=== PATIENT | male | born 1950 | race Caucasian/White ===

== ENCOUNTER 2017-10-06 15:04 | Observation (INO) | payer OTHER ==
[2017-10-06] MEDS ORDERED: NS 500 ML IV ONE (15:07)
[2017-10-06] MEDS ORDERED: ASPIRIN 81 MG CHEWABLE TAB PO ONE (15:07)
--- NOTE | 2017-10-06 15:20 | CPEKG ---
Heart Rate: 100 RR Interval: 600 P-R Interval: 180 QRSD Interval: 116 QT Interval: 392 QTC Interval: 506 P [place]: 0 QRS [place]: 44 T Wave [place]: 261 EKG Severity - ABNORMAL ECG - EKG Impression: SINUS TACHYCARDIA EKG Impression: PAIRED VENTRICULAR PREMATURE COMPLEXES EKG Impression: NONSPECIFIC INTRAVENTRICULAR CONDUCTION DELAY EKG Impression: LOW VOLTAGE IN FRONTAL LEADS EKG Impression: MINIMAL ST DEPRESSION Electronically Signed By: Ariel Pizarro 06-Oct-2017 22:43:00
--- NOTE | 2017-10-06 15:23 | EDPHY ---
H & P Time Seen by Provider: 10/06/17 15:07 HPI/ROS: HPI Chest discomfort, history of coronary artery disease. 67-year-old male by private vehicle with his daughter. This patient has a history of atrial fibrillation. He is currently on Eliquis. He also takes verapamil but he is not sure why he takes this medication. He has an extensive coronary artery disease history including multiple stents placed in the mid 90s and quadruple bypass about 7 years ago. He reports he was up and [place] 2 days ago. [place] felt very short of breath with any kind of exertion and developed left-sided chest pain which she describes as a dull ache with radiation into his left arm. He came back down to the [facility] area and is still experiencing the symptoms. ROS: Constitutional: No fever, no chills. No weakness. Eyes: No discharge. No changes in vision. ENT: No sore throat. No nasal congestion or rhinorrhea. Respiratory: No cough. As above. Cardiac: As above, no palpitations. Gastrointestinal: No abdominal pain, no vomiting, no diarrhea. Genitourinary: No hematuria. No dysuria or increased frequency with urination. Musculoskeletal: No back pain. No neck pain. No myalgias or arthralgias. Skin: No rashes. Neurological: No headache. No focal weakness or altered sensation. Past medical history: As above. Also includes sleep apnea. He uses CPAP at night. His local hazmat driver is out [facility] in [place]. His primary care physician is also in [place]. Is currently taking verapamil on Eliquis. Social history: Nonsmoker. No alcohol. Currently with his daughter. Physical Exam: General Appearance: Alert, mildly anxious. He is a large man. This patient is responding to questions appropriately and in full sentences. He is mildly dyspneic. This patient appears well-hydrated and well-nourished. Eyes: Pupils equal and round no pallor or injection. No lid edema, erythema or injection. Respiratory: There are no retractions, lungs are clear to auscultation anteriorly with good air movement bilaterally. Mild tachypnea. Cardiovascular: Irregular irregular rhythm. No murmur appreciated. Midline sternotomy scar. Gastrointestinal: Obese habitus. Abdomen is soft and nontender, no masses, bowel sounds normal. No focal tenderness at McBurney's point. No Nuno sign. Neurological: Motor sensory function is grossly intact. Cranial nerves are normal. Gait is normal. Skin: Warm and dry, no rashes. Musculoskeletal: Neck is supple and nontender. Extremities are symmetrical. All joints range without pain or impingement. Psychiatric: No agitation. No depression. Database: EKG: EKG time is 3:18 p.m.; EKG shows a atrial fibrillation with multiple PVCs which are partially in a bigeminal pattern. Low voltage in the frontal leads noted. No prior EKG available for comparison. Interpreted by me. Imaging: Chest x-ray AP portable; this is an AP film but probable cardiomegaly, the mediastinum appears wide. No evidence of infiltrate or pneumothorax. Probable mild CHF verses airway disease versus pulmonary venous congestion. No other acute cardiopulmonary disease process noted. Interpreted by me. Echocardiogram: Procedures: Emergency department course: IV was placed. The patient was placed on a rn cardiac rehab. Vital signs reviewed. He was placed on oxygen at 2 L by nasal cannula. He was given 324 mg of chewed aspirin. 3:50 p.m., patient re-evaluated. At this time he does not have any chest pain. While at rest he denies any shortness of breath. An echocardiogram has been ordered and is pending at this time. I discussed the results of his EKG and chest x-ray. Blood work pending. The patient has been informed that he will be admitted to the hospital. He endorses this plan. 4:15 p.m., patient re-evaluated. Resting comfortably at this time. He is currently getting his echocardiogram done. I discussed results of his blood work. He denies any chest pain or shortness of breath at rest currently. Hospitalist paged for admission. 4:30 p.m., spoke with hospitalist, Dr. Villatoro. Case discussed in detail. He accepts this patient for admission to telemetry. He asked that we call the local hazmat driver to have them consult. Cardiology paged. 4:45 p.m., spoke with Dr. Babs Tim, local hazmat driver. Case discussed in detail with her. She will see this patient on consultation. 4:55 p.m., patient re-evaluated. Resting comfortably at this time. Will be taken upstairs shortly. Results of all blood work as well as my discussions with his admitting physician and consulting local hazmat driver discussed with family. All their questions were answered. The patient was admitted in stable condition. D-dimer was noted to be slightly elevated. CT angiogram of chest will be held at this time pending further evaluation by the hospitalist service. Differential Diagnosis: The differential diagnosis on this patient includes but is not limited to congestive heart failure, acute coronary syndrome, myocardial infarction, pulmonary embolism. This represents a partial list of diagnoses considered. These considerations are based on history, physical exam, past history, reassessment and diagnostic testing. Smoking Status: Never smoked Constitutional: Initial Vital Signs Temperature (C) 37.0 C 10/06/17 15:09 Heart Rate 71 10/06/17 15:09 Respiratory Rate 18 10/06/17 15:09 Blood Pressure 130/83 H 10/06/17 15:09 O2 Sat (%) 92 10/06/17 15:09 O2 Delivery Mode Nasal Cannula O2 (L/minute) 2 Allergies/Adverse Reactions: hydromorphone [From Dilaudid] Allergy (Severe, Verified 10/06/17 16:11) "FLATLINES, HEART STOPS" morphine Allergy (Severe, Verified 10/06/17 16:11) "FLATLINES, HEART STOPS" Home Medications: Medication Instructions Recorded Apixaban [Eliquis] 5 mg PO BID 10/06/17 Atorvastatin Calcium 80 mg PO HS 10/06/17 Doxazosin Mesylate [Cardura 4 MG 4 mg PO HS 10/06/17 (*)] Ketoconazole 2% [Nizoral Shampoo 1 radha TP .3X/WK PRN 10/06/17 (*)] Naproxen [Naprosyn] 500 mg PO BID 10/06/17 Nitroglycerin [Nitrostat 0.4 mg 0.4 mg SL Q5M PRN 10/06/17 (*)] Triamterene/Hctz 37.5/25 1 tab PO DAILY 10/06/17 [Maxzide-25 (*)] Verapamil ER [Calan SR/ER 180MG 180 mg PO DAILY 10/06/17 (*)] oxyCODONE IR [Oxycodone Ir (*)] 10 mg PO DAILY PRN 10/06/17 Medical Decision Making - Diagnostics Imaging Results: Imaging Impressions Chest X-Ray 10/06/17 15:08 Impression: Cardiomegaly and pulmonary venous hypertension. No myla failure. - Data Points Laboratory Results: Laboratory Results 10/06/17 15:24 10/06/17 15:24 10/06/17 10/06/17 10/06/17 15:24 15:24 15:24 WBC 8.25 10^3/uL 10^3/uL (3.80-9.50) RBC 5.00 10^6/uL 10^6/uL (4.40-6.38) Hgb 14.9 g/dL g/dL (13.7-17.5) Hct 43.5 % % (40.0-51.0) MCV 87.0 fL fL (81.5-99.8) MCH 29.8 pg pg (27.9-34.1) MCHC 34.3 g/dL g/dL (32.4-36.7) RDW 14.0 % % (11.5-15.2) Plt Count 207 10^3/uL 10^3/uL (150-400) MPV 9.1 fL fL (8.7-11.7) Neut % (Auto) 70.4 % % (39.3-74.2) Lymph % (Auto) 16.1 % % (15.0-45.0) [place] % (Auto) 10.2 % % (4.5-13.0) Eos % (Auto) 1.7 % % (0.6-7.6) Baso % (Auto) 1.2 % % (0.3-1.7) Nucleat RBC Rel Count 0.0 % % (0.0-0.2) Absolute Neuts (auto) 5.81 10^3/uL 10^3/uL (1.70-6.50) Absolute Lymphs (auto) 1.33 10^3/uL 10^3/uL (1.00-3.00) Absolute Monos (auto) 0.84 10^3/uL H 10^3/uL (0.30-0.80) Absolute Eos (auto) 0.14 10^3/uL 10^3/uL (0.03-0.40) Absolute Basos (auto) 0.10 10^3/uL 10^3/uL (0.02-0.10) Absolute Nucleated RBC 0.00 10^3/uL 10^3/uL (0-0.01) Immature Gran % 0.4 % % (0.0-1.1) Immature Gran # 0.03 10^3/uL 10^3/uL (0.00-0.10) PT 18.0 SEC H SEC (12.0-15.0) INR 1.47 H (0.83-1.16) APTT 34.7 SEC SEC (23.0-38.0) D-Dimer 0.55 ug/mLFEU H ug/mLFEU (0.00-0.50) Sodium 138 mEq/L mEq/L (135-145) Potassium 4.3 mEq/L mEq/L (3.5-5.2) Chloride 103 mEq/L mEq/L (97-110) Carbon Dioxide 22 mEq/l mEq/l (22-31) Anion Gap 13 mEq/L mEq/L (8-16) BUN 17 mg/dL mg/dL (7-23) Creatinine 0.8 mg/dL mg/dL (0.7-1.3) Estimated GFR > 60 Glucose 100 mg/dL mg/dL (70-100) Calcium 8.7 mg/dL mg/dL (8.5-10.4) Creatine Kinase 172 IU/L IU/L (0-224) CK-MB (CK-2) Fraction 1.99 ng/mL ng/mL (0.00-3.19) Troponin I < 0.012 ng/mL ng/mL (0.000-0.034) NT-Pro-B Natriuret Pep 680 pg/mL H pg/mL (0-125) TSH 3.000 uIU/mL uIU/mL (0.465-4.680) Medications Given: Discontinued Medications Aspirin (Aspirin) 324 mg PO EDNOW ONE Stop: 10/06/17 15:08 Last Admin: 10/06/17 15:37 Dose: 324 mg Sodium Chloride (Ns) 500 mls @ 1,000 mls/hr IV EDNOW ONE PRN Reason: Protocol Stop: 10/06/17 15:36 Last Admin: 10/06/17 15:39 Dose: 500 mls Departure - Departure Disposition: [facility] Inpatient Acute Clinical Impression: Chest pain, Atrial fibrillation, History of coronary artery disease
[2017-10-06 15:32] LABS: PLATELET COUNT 207 10^3/uL (150-400)
[2017-10-06 15:42] LABS: INR 1.47 (0.83-1.16)
[2017-10-06 15:44] LABS: CREATINE KINASE 172 IU/L (0-224)
[2017-10-06] MEDS ORDERED: ONDANSETRON DISINTEGRATING 4 MG TAB PO PRN (16:39)
[2017-10-06] MEDS ORDERED: ACETAMINOPHEN 325 MG TAB PO PRN (16:39)
[2017-10-06] MEDS ORDERED: ONDANSETRON 4 MG/2 ML VIAL IVP PRN (16:39)
[2017-10-06] MEDS ORDERED: KETOCONAZOLE 2% 120 ML SHAMPOO TP PRN (17:33)
[2017-10-06] MEDS ORDERED: NITROGLYCERIN 0.4 MG BTL SL PRN (17:33)
--- NOTE | 2017-10-06 17:39 | PDGENHP ---
History and Physical - Chief Complaint Acute shortness of breath - History of Present Illness Primary care provider: In [place] Primary health information manager: At [facility] HPI: 67-year-old male presenting with acute shortness of breath characterized as difficulty breathing exacerbated by any physical activity, provoked by even several steps across room, with onset of symptoms 2 days prior when he went to [place], and duration has been persistent thereafter. It has been associated with some left chest and left arm achiness radiating into his lower neck. The symptoms are similar in character to his previous anginal symptoms prior to his cardiac bypass surgery. The patient reports that for the past 2-3 years he has experienced poor exercise tolerance and exertional shortness of breath and he had a nuclear stress dressed test done approximately 2 years ago as well as an echocardiogram which did not warrant any further testing by his health information manager. That being said, over the past 2 days, the patient's shortness of breath has substantially increased and has not returned to baseline despite coming back to [place] from [place]. He otherwise reports that he has been losing some weight over the past 30 days in the context of a low- carbohydrate diet, and he has attempted initiating CPAP approximately 10-12 days ago. He has not recently had any medication changes. History Information - Allergies/Home Medication List Allergies/Adverse Reactions: hydromorphone [From Dilaudid] Allergy (Severe, Verified 10/06/17 16:11) "FLATLINES, HEART STOPS" morphine Allergy (Severe, Verified 10/06/17 16:11) "FLATLINES, HEART STOPS" Home Medications: Apixaban [Eliquis] 5 mg PO BID 10/06/17 [Last Taken 10/06/17 09:00] Atorvastatin Calcium 80 mg PO HS 10/06/17 [Last Taken 10/05/17] Doxazosin Mesylate [Cardura 4 MG (*)] 4 mg PO HS 10/06/17 [Last Taken 10/05/17] Ketoconazole 2% [Nizoral Shampoo (*)] 1 radha TP .3X/WK PRN 10/06/17 [Last Taken Unknown] Naproxen [Naprosyn] 500 mg PO BID 10/06/17 [Last Taken 10/06/17 09:00] Nitroglycerin [Nitrostat 0.4 mg (*)] 0.4 mg SL Q5M PRN 10/06/17 [Last Taken Unknown] Triamterene/Hctz 37.5/25 [Maxzide-25 (*)] 1 tab PO DAILY 10/06/17 [Last Taken ] Verapamil ER [Calan SR/ER 180MG (*)] 180 mg PO DAILY 10/06/17 [Last Taken ] oxyCODONE IR [Oxycodone Ir (*)] 10 mg PO DAILY PRN 10/06/17 [Last Taken Unknown] I have personally reviewed and updated: family history, medical history, social history, surgical history - Past Medical History atrial fibrillation (Permanent on Eliquis), coronary artery disease (With cardiac stents in the and CABG several years ago) Additional medical history: AMINTA on CPAP. Morbid obesity. Chronic lower back pain - Surgical History Additional surgical history: CABG, cardiac stents, back surgery 1 year ago, epidural injection 3 weeks ago - Family History Additional family history: Father of a myocardial infarction at age 38, grandfather had a myocardial infarction at age 50, family history of hyperlipidemia - Social History Smoking Status: Never smoked Alcohol Use: Occasionally (Approximately 1 alcoholic beverage daily) Drug Use: None Additional social history: Independent in his ADLs comma chronically gets short of breath with exercise Review of Systems Review of Systems: ROS: 10pt was reviewed & negative except for what was stated in HPI & below Constitutional: Reports: weight loss Cardiac: Reports: chest pain Respiratory: Reports: shortness of breath Physical Exam Physical Exam: Temp Pulse Resp BP Pulse Ox 37.0 C 84 20 138/72 H 94 10/06/17 15:09 10/06/17 16:42 10/06/17 16:42 10/06/17 16:42 10/06/17 16:42 O2 (L/minute) 2 Constitutional: no apparent distress, not in pain, obese, No uncomfortable Eyes: PERRL, anicteric sclera, EOMI Ears, Nose, Mouth, Throat: moist mucous membranes, hearing normal, ears appear normal, no oral mucosal ulcers Cardiovascular: regular rate and rhythym, no murmur, rub, or gallop, JVD, No edema Respiratory: no respiratory distress, no rales or rhonchi, clear to auscultation Gastrointestinal: normoactive bowel sounds, soft, non-tender abdomen, no palpable masses, No distension Skin: No abrasion, No rash Neurologic: AAOx3, sensation intact bilaterally, No weakness, No facial droop Psychiatric: interacting appropriately, not anxious, not encephalopathic, thought process linear Lab Data & Imaging Review 10/06/17 15:24 10/06/17 15:24 WBC 8.25 10^3/uL (3.80-9.50) 10/06/17 15:24 RBC 5.00 10^6/uL (4.40-6.38) 10/06/17 15:24 Hgb 14.9 g/dL (13.7-17.5) 10/06/17 15: Hct 43.5 % (40.0-51.0) 10/06/17 15: MCV 87.0 fL (81.5-99.8) 10/06/17 15: MCH 29.8 pg (27.9-34.1) 10/06/17 15: MCHC 34.3 g/dL (32.4-36.7) 10/06/17 15:24 RDW 14.0 % (11.5-15.2) 10/06/17 15:24 Plt Count 207 10^3/uL (150-400) 10/06/17 15: MPV 9.1 fL (8.7-11.7) 10/06/17 15:24 Neut % (Auto) 70.4 % (39.3-74.2) 10/06/17: Lymph % (Auto) 16.1 % (15.0-45.0) 10/06/17 15:24 [place] % (Auto) 10.2 % (4.5-13.0) 10/06/17 15:24 Eos % (Auto) 1.7 % (0.6-7.6) 10/06/17 15: Baso % (Auto) 1.2 % (0.3-1.7) 10/06/17 15: Nucleat RBC Rel Count 0.0 % (0.0-0.2) 10/06/17 15: Absolute Neuts (auto) 5.81 10^3/uL (1.70-6.50) 10/06/17 15:24 Absolute Lymphs (auto) 1.33 10^3/uL (1.00-3.00) 10/06/17 15:24 Absolute Monos (auto) 0.84 10^3/uL (0.30-0.80) H 10/06/17 15:24 Absolute Eos (auto) 0.14 10^3/uL (0.03-0.40) 10/06/17 15:24 Absolute Basos (auto) 0.10 10^3/uL (0.02-0.10) 10/06/17 15:24 Absolute Nucleated RBC 0.00 10^3/uL (0-0.01) 10/06/17 15: Immature Gran % 0.4 % (0.0-1.1) 10/06/17 15: Immature Gran # 0.03 10^3/uL (0.00-0.10) 10/06/17 15:24 PT 18.0 SEC (12.0-15.0) H 10/06/17 15:24 INR 1.47 (0.83-1.16) H 10/06/17 15:24 APTT 34.7 SEC (23.0-38.0) 10/06/17 15:24 D-Dimer 0.55 ug/mLFEU (0.00-0.50) H 10/06/17 15:24 Sodium 138 mEq/L (135-145) 10/06/17 15:24 Potassium 4.3 mEq/L (3.5-5.2) 10/06/17 15:24 Chloride 103 mEq/L (97-110) 10/06/17 15:24 Carbon Dioxide 22 mEq/l (22-31) 10/06/17 15:24 Anion Gap 13 mEq/L (8-16) 10/06/17 15:24 BUN 17 mg/dL (7-23) 10/06/17 15:24 Creatinine 0.8 mg/dL (0.7-1.3) 10/06/17 15:24 Estimated GFR > 60 10/06/17 15:24 Glucose 100 mg/dL (70-100) 10/06/17 15:24 Calcium 8.7 mg/dL (8.5-10.4) 10/06/17 15:24 Creatine Kinase 172 IU/L (0-224) 10/06/17 15:24 CK-MB (CK-2) Fraction 1.99 ng/mL (0.00-3.19) 10/06/17 15:24 Troponin I < 0.012 ng/mL (0.000-0.034) 10/06/17 15:24 NT-Pro-B Natriuret Pep 680 pg/mL (0-125) H 10/06/17 15:24 TSH 3.000 uIU/mL (0.465-4.680) 10/06/17 15:24 Visualized and Interpreted Chest x-ray results: Yes Chest X-Ray results: no infiltrate, other (Cardiomegaly, increased central pulmonary vascularity) Visualized and Interpreted EKG results: Yes EKG Interpretation: Positive for: other (Atrial fibrillation with frequent PVCs and bigeminy) Assessment & Plan Assessment: 67-year-old male presents with severe exertional shortness of breath and acute chest pain in the setting of known coronary artery disease, atrial fibrillation comma frequent PVCs Plan: 1. Shortness of breath and chest pain. Acute, new problem this provider, further workup indicated. The symptoms are particularly worrisome for stable angina given that there characterized as consistent with his previous anginal symptoms. They have been particular worsening over the past 2 days and they warrant urgent evaluation. -repeat troponin level in 4 hr to ensure no recent or active ischemia -will discuss with Dr. Babs Tim to determine whether nuclear stress test versus cardiac catheterization is in order -monitor closely for any development of unstable symptoms and administer sublingual nitroglycerin if he does experience symptoms at rest -monitor on telemetry to gauge PVC burden, as this is another possible explanation for his exertional symptoms if he is experiencing poor cardiac output in the setting of frequent PVC conduction -D-dimer rule out pulmonary embolism -get echocardiogram to ensure no recent reduction in ejection fraction -order outside records from [facility] including echocardiogram, baseline EKG, most recent cardiac catheterization and nuclear stress test, and cardiology clinic note 2. Coronary artery disease. Chronic, symptoms are very similar to his previous anginal symptoms, he is continued on his high-dose statin, systemic anticoagulation -repeat lipid panel and hemoglobin A1c 3. Permanent atrial fibrillation. In the setting of morbid obesity obstructive sleep apnea and coronary disease, he is currently on verapamil and systemic anticoagulation -monitor for rapid ventricular response on telemetry 4. Morbid obesity. Increases patient's risk for worsening morbidity and/or mortality, patient currently working on a diet for weight loss 5. Obstructive sleep apnea. Patient currently utilizing CPAP at home, continue to encourage 6. Chronic back pain with continuous opiate dependency. Continue as needed oxycodone Diet. Cardiac, NPO in a.m. Prophylaxis. High risk patient, Lovenox for Code. Full Disposition. Anticipated discharge is 10/07, pending further workup as outlined above. I have discussed patient's presentation with Dr. Ariel Pizarro, he and I both agree that the patient requires urgent evaluation given the similar characterization of his symptoms to his previous anginal equivalent and the patient having high risk for obstructive coronary disease.
--- NOTE | 2017-10-06 17:55 | ECHO ---
[email or web address] [address] [address] Main: [phone] Fax: Transthoracic Echocardiogram Name: JESSY BLACKWOOD MR#: [id number] Study Date: 10/06/2017 Study Time: 04:18 PM Date of : 1950 Age: 67 year(s) Height: 185.4 cm (73 in.) Weight: 129.28 kg (285 lb.) BSA: 2.5 m2 Gender: Male Examination: Echo Indication: Chest Pain, chronic atrial fibrillation Image Quality: Contrast: Requested by: Ariel Martinez BP: 131 mmHg/80 mmHg Heart Rate: Rhythm: Indication: Chest Pain, chronic atrial fibrillation Procedure Staff Pulverizer Feeder: Shasha Levia [facility] Reading Physician: Babs Tim MD Requesting Provider: Philippe Villatoro Conclusions: Moderately dilated left ventricle. The ejection fraction is estimated to be 45-50 %. LV septal motion consistent with conduction abnormality. In some views, the distal septum and apical portion of the septum is hypokinetic. Normal size right ventricle. Normal RV function. The left atrium is moderately dilated. Mild to moderate mitral regurgitation. Mild to moderate tricuspid valve regurgitation. The pulmonary artery pressure is moderately increased. RVSP is 52-57mmHG.. There is no previous echocardiogram for comparison. Measurements: Chambers Valvular Assessment AV/MV Valvular Assessment TV/PV Normal Normal Normal Name Value Range Name Value Range Name Value Range EF Range: 45-50 % Continued Measurements: Findings: Left Ventricle: Moderately dilated left ventricle. The ejection fraction is estimated to be 45-50 %. LV septal motion consistent with conduction abnormality. In some views, the distal septum and apical portion of the septum is hypokinetic. Right Ventricle: Normal size right ventricle. Normal RV function. Patient: JESSY BLACKWOOD Study Date: 10/06/2017 Page 1 of 2 04:18 PM Left Atrium: The left atrium is moderately dilated. Right Atrium: The right atrium is moderately dilated. Mitral Valve: The mitral valve is normal in appearance and function. Mild to moderate mitral regurgitation. Aortic Valve: Mild aortic cusp calcification is noted. Tricuspid Valve: The tricuspid valve is normal in appearance and function. Mild to moderate tricuspid valve regurgitation. The pulmonary artery pressure is moderately increased. RVSP is 52-57mmHG.. Pulmonic Valve: The pulmonic valve is normal in appearance and function. Trivial pulmonic valve regurgitation. Aorta: The aorta is normal. Pericardium: No pericardial effusion. There is pericardial fat. (No Signature Object) Patient: JESSY BLACKWOOD Study Date: 10/06/2017 Page 2 of 2 04:18 PM [id number]
[2017-10-06] MEDS ORDERED: NON-FORMULARY NEW DRUG (Atorvastatin Calcium [Atorvastatin Calcium] 80 MG) PO SCH (21:00)
[2017-10-06] MEDS: ATORVASTATIN CALCIUM 40 MG TAB PO SCH (21:29)
[2017-10-06] MEDS: APIXABAN 5 MG TAB PO SCH (21:29)
[2017-10-06] MEDS: oxyCODONE IR 5 MG TAB PO PRN (21:29)
[2017-10-06] MEDS: DOXAZOSIN MESYLATE 4 MG TAB PO SCH (21:29)
[2017-10-06] MEDS: diphenhydrAMINE 25 MG CAP PO PRN (23:28)
[2017-10-07] MEDS ORDERED: NS 1,000 ML IV ONE (09:04)
[2017-10-07] MEDS ORDERED: DIAZEPAM 5 MG TAB PO ONE ×2 (09:04→09:11)
[2017-10-07] MEDS ORDERED: ASPIRIN EC 325 MG TAB PO ONE ×2 (09:04→09:25)
[2017-10-07] MEDS ORDERED: diphenhydrAMINE 25 MG CAP PO ONE ×2 (09:04→09:25)
[2017-10-07] MEDS ORDERED: FAMOTIDINE 20 MG TAB PO ONE ×2 (09:04→09:11)
[2017-10-07] MEDS ORDERED: TEMAZEPAM 15 MG CAP PO PRN (09:11)
[2017-10-07] MEDS ORDERED: LIDOCAINE 1% 300 MG/30 ML SDV ONE (09:12)
[2017-10-07] MEDS ORDERED: fentaNYL 100 MCG/2 ML INJ ONE (09:12)
[2017-10-07] MEDS ORDERED: IOPAMIDOL (ISOVUE-370) 150 ML BTL IV ONE (09:12)
[2017-10-07] MEDS ORDERED: MIDAZOLAM 2 MG/2 ML VIAL ONE ×3 (09:12→10:25)
--- NOTE | 2017-10-07 09:14 | PDCARPN ---
Cardiology Progress Note Chief Complaint: SOB Assessment/Plan: Assessment: s/p CABG 2010 SOB CP AF Plan: 10/07/17 09:13 Plan for cath this AM NPO d/w patient/family--agreeable with possible risks of procedure Reviewed/Discussed With: multidisciplinary team Time Spent With Patient: 25 min Objective: Vital Signs (8 Hrs) Temp Pulse Resp BP Pulse Ox 10/07/17 07:16 36.8 C 83 17 141/82 H 95 10/07/17 03:47 36.7 C 87 22 H 140/88 H 97 Intake/Output (24 Hrs) 10/06/17 10/07/17 10/08/17 05:59 05:59 05:59 Intake Total 1100 Output Total 2450 Balance -1350 Intake: Oral (ml) 600 IV Infused (ml) 500 Output: Urine (ml) 2450 Toilet 650 Urinal 1800 Other: Weight 133.158 kg Intake Quantity Yes Sufficient Number of Voids 1 Toilet 3 Result Diagrams: 10/06/17 15:24 10/06/17 15:24 Cardiac Labs: Cardiac Lab Results (72 Hrs) 10/06/17 19:59 Troponin I < 0.012 - Physical Exam Constitutional: healthy appearing Eyes: PERRL Ears, Nose, Mouth, Throat: moist mucous membranes Cardiovascular: irregularly irregular Peripheral Pulses: 1+: femoral (R), femoral (L) Respiratory: clear to auscultate bilat Gastrointestinal: normoactive bowel sounds Genitourinary: no suprapubic tenderness Skin: no rashes Musculoskeletal: no muscular tenderness Psychiatric: cooperative ICD10 Worksheet Patient Problems: Problems Problem Status Onset Atrial fibrillation Acute Chest pain Acute History of coronary artery disease Acute
--- NOTE | 2017-10-07 09:15 | PDPROPOC ---
Sedation Plan of Care Sedation Plan of Care: mental status noted, patient educated of risks, benefits , alternatives, patient can tolerate sedation ASA Classification: ASA 2 Planned drugs: midazolam Mallampati Score: Class 2 Mallampati Reference Image: Patient passed 3-3-2 rule?: Yes
--- NOTE | 2017-10-07 09:15 | PDHPUP ---
History & Physical Update H&P update statement: This history and physical update is based on an assessment of the patient which was completed after admission or registration (within 24 hours), but prior to the surgery/procedure. H&P update: H&P reviewed & patient examined, no change in patient's condition since H&P completed
[2017-10-07] MEDS ORDERED: DIAZEPAM 5 MG TAB ONE (09:25)
[2017-10-07] MEDS ORDERED: FAMOTIDINE 20 MG TAB ONE (09:25)
[2017-10-07] MEDS ORDERED: CLOPIDOGREL BISULFATE 75 MG TAB ONE (09:30)
[2017-10-07] MEDS ORDERED: CLOPIDOGREL BISULFATE 75 MG TAB PO ONE (09:45)
--- NOTE | 2017-10-07 09:47 | GCON ---
[f rep st] CONSULTATION CARDIOLOGY CONSULT CHIEF COMPLAINT: Shortness of breath, chest pain. HISTORY OF PRESENT ILLNESS: This is a 67-year-old male with history of prior bypass surgery. The gilbert bauer has also had prior history of stents. His last bypass surgery was in 2010, which was apparentl y a quadruple bypass. The patient indicates in the last 2 months he has been having increasing short ness of breath and has mild chest pain from his left shoulder. The patient does have a history of ch ronic atrial fibrillation. He does take Eliquis daily, twice daily. He has not taken his morning do se and he is n.p.o. currently. He came to the emergency room where he was found to have no acute ST changes. He was in controlled atrial fibrillation with PVCs. An echocardiogram showed an EF of 45% to 60% with mild hypokinesis in the apical region. Currently, the patient is resting quietly; howeve r, he indicates every time he does walk up the stairs or any distance he does get short of breath wit h some increasing discomfort in his left shoulder and chest area. He feels this is consistent with h is pain that he had prior to his prior cardiac interventions. Blood pressure and heart rate are curr ently stable. PAST MEDICAL HISTORY: Significant for CABG 2010, prior PCIs before his bypass surgery, atrial fibril lation, hypertension. Additional medical history, patient has obstructive sleep apnea, morbid obesit y. HOME MEDICATIONS: Consist of Eliquis, atorvastatin, nitroglycerin, triamterene, verapamil, oxycodone . ALLERGIES: The patient has apparently an extremely severe allergy to hydromorphone and morphine, whe re the patient indicates he has gone into asystole. FAMILY HISTORY: The patient has a history of coronary artery disease in the paternal side. SOCIAL HISTORY: Never smoked. Occasional alcohol use. No drug use. REVIEW OF SYSTEMS: Patient currently denies any vision changes. No headache. No palpitations. No chest pain at rest. No abdominal pain. No lower extremity pain. The patient does indicate shortnes s of breath with minimal exertion and does indicate having chest pain with moderate exertion. PHYSICAL EXAM: VITAL SIGNS: Afebrile 96, blood pressure 140/90 with a heart rate of 86, respiration s 12, sat 95% on 2 L nasal cannula. HEENT: Pupils equal, round, and reactive to light and accommoda tion. Extraocular movements intact. CARDIOVASCULAR: Irregularly irregular. S1, S2. LUNGS: Scatt ered wheezes bilaterally. ABDOMEN: Soft, nontender. No guarding. Obese. EXTREMITIES: No clubbin g, no cyanosis, no edema. NEUROLOGIC: Alert and oriented x3. LABORATORY VALUES: Currently show a D-dimer 0.5, INR 1.4. White blood cell 8.2, hemoglobin 14.9, he matocrit 43.5, platelet count of 207. Creatinine of 0.8. Troponin of 0.01. ASSESSMENT/PLAN: Shortness of breath/chest pain. At this time, the patient has symptoms similar to his prior anginal episodes in the past. Given his vast cardiac history as well as progressive sympto ms, I feel we need to proceed with a left heart catheterization to define the patient's underlying co ronary anatomy. I have explained the risks/possible complications of the procedure including bleedin g, infection, stroke, and and the patient agrees to proceed with the procedure. We will make t he patient n.p.o. and hold the patient's Eliquis and proceed with the procedure this morning. /[id number]/MODL
[2017-10-07] MEDS ORDERED: BIVALIRUDIN 250 MG/5 ML VIAL IV ONE (10:35)
[2017-10-07] MEDS: oxyCODONE IR 5 MG TAB PO PRN ×2 (11:20→20:42)
[2017-10-07] MEDS ORDERED: ATROPINE SULFATE 1 MG/10 ML SYR IVP PRN (11:22)
--- NOTE | 2017-10-07 12:42 | CPEKG ---
Heart Rate: 78 RR Interval: 769 QRSD Interval: 112 QT Interval: 380 QTC Interval: 433 QRS [place]: 45 T Wave [place]: -74 EKG Severity - ABNORMAL ECG - EKG Impression: ATRIAL FIBRILLATION EKG Impression: VENTRICULAR BIGEMINY EKG Impression: NONSPECIFIC INTRAVENTRICULAR CONDUCTION DELAY EKG Impression: LOW VOLTAGE IN FRONTAL LEADS Electronically Signed By: Federico Siddiqui 09-Oct-2017 10:34:46
--- NOTE | 2017-10-07 13:18 | CPIP ---
[f rep st] INVASIVE CARDIAC PROCEDURE DATE OF PROCEDURE: 10/07/2017 INDICATION FOR PROCEDURE: Unstable angina. PROCEDURES: 1. Nonselective left groin sheathogram. 2. 7-[place] sheath placed in left common femoral vein. 3. Right heart catheterization with Glendo-Delilah catheter. 4. Bilateral selective coronary angiography. 5. Left heart catheterization. 6. Left ventriculogram. 7. Saphenous vein angiography to distal right coronary artery. 8. Saphenous vein angiography to ramus intermedius. 9. Saphenous vein angiography to marginal 3 artery. 10. Left internal mammary artery angiography to left anterior descending. 11. Percutaneous coronary intervention of high-grade marginal 1 disease utilizing Synergy 2.75 x 12 mm drug-eluting stent. HISTORY: Briefly, this is a 67-year-old male with history of previous bypass surgery. The patient h as been complaining of worsening dyspnea on exertion and chest pain as an outpatient. The patient wa s admitted for these symptoms. Given the patient's history as well as the patient's clinical conditi on, we decided to proceed with right and left heart catheterizations. DESCRIPTION OF PROCEDURE: After informed consent, the patient was brought to [facility] where the left groin was prepped and draped in sterile fashion. Using lidocaine, a short 6-[place] sheath placed in the left common femoral artery, verified angiographically. Through a 7-[place] [facility] left common femoral vein, a Glendo-Delilah catheter was advanced. Wedge pressure was measured to be A-w ave 27, V 29 with a mean of 27. PA pressure had a systolic 68, diastolic 37 with a mean 49. RV pres sure 67 systolic with a diastolic 6, end 15. RA pressure had a mean 18 with A-wave 19, V-wave 27. C ardiac output was measured to be by Zahra 6.6 with an index of 2.64. PA sat was 73 with an AO sat of 97%. At this time, the right Glendo-Delilah catheter was removed. A JL4 catheter was advanced. Left negrito in was chosen for this purpose secondary to the patient having a rash in the right groin. The left c oronary artery showed patent left main. There was a large marginal 1 artery coming off proximally, w hich had a high-grade 90% disease. However, there was no discernible graft filling this vessel dista lly. The circumflex terminated into an AV groove circ proper with no significant disease. The LAD p roximally appeared to have mild 40% to 50% disease, then going to an area of diffuse 70% disease, ter minating into a large diagonal artery. Of note, there was competitive filling of the LAD indicating most likely a patent graft. Again, the diffuse disease prior to the takeoff of the long diagonal art nadir was diffusely 70% in this area. After these images were obtained, the JL4 catheter was removed. The JR4 catheter was advanced to the right coronary artery. Images of the right coronary artery rev ealed 100% occluded proximal RCA. After these images were obtained, the JR4 catheter was pulled back to the 1st graft, which appeared to be a saphenous vein graft to what appeared to be either a high d iagonal artery or ramus intermedius. This appeared to be widely patent with only mild plaque disease in the graft itself. The distal ramus appeared to be healthy and free of disease. After these imag es were obtained, the catheter was pulled back to the 2nd graft, which appeared to be a saphenous vei n graft to distal RCA. The distal RPD and RPLS appeared to be healthy and free of disease. The 3rd graft was cannulated with an LCB guide, which appeared to be a patent graft to a marginal 3 artery. After these images had been obtained, this catheter was pulled back, exchanged for a [place] catheter. Angiography of the AUSTIN showed a widely patent [place] anastomosing to a healthy mid LAD. The distal LA D appeared to be healthy and free of disease. After these images were obtained, this catheter was pu lled back and a pigtail catheter was advanced to the left ventricle. LVEDP 26 mmHg. Left ventriculo gram in the PITT projection showed EF of 40% to 45% with global hypokinesis. There was no pull-back g radient between the LV and the aorta. INTERVENTION REPORT: At this time, the patient had been administered Plavix prior to the catheterization. The patient has high-grade marginal 1 disease in a vessel that appears to have not had a prior bypass and is quite large distally. Though he has diffuse disease in his LAD before take off of a large diagonal artery, the LAD itself is grafted after this area of disease and trying to in tervene on any [place] LAD disease to open up more flow to the diagonal artery would most likely compr omise any flow to the [place]UST[place] LAD system. I feel the patient's symptoms are more likely consistent with his marginal 1 artery disease. Given the fact that it is not grafted and it is at least a 25 to 30 vessel, we decided at this point to proceed with intervention of this area. The patient was started on Angiomax bolus and drip. Utilizing the EBU 3.5 guide catheter, the left coronary artery was selec tively engaged. A Choice PT wire was placed down the marginal 1 artery. Predilatation with a 2.0 x 12 Compliant balloon at 10 atmospheres which was performed. We then proceeded with stenting of the v essel with a Synergy 2.75 x 12 mm drug-eluting stent that was deployed successfully at 12 atmospheres . After deployment, angiographic images were obtained, which showed excellent patency of the stented area with no evidence of dissection or perforation. This was verified in orthogonal views. Wire wa s removed. The guide catheter was removed. The left groin was closed with 6-[place]ayan Angio-Seal. The 7-[place]aguayan sheath was sutured in place. Patient tolerated the procedure well with no complications. IMPRESSION: 1. Moderately severe pulmonary hypertension. 2. Normal cardiac output. 3. Patent 4/4 bypass grafts. 4. Mildly reduced ejection fraction of 40% to 45%. 5. Severe [place] coronary artery disease. 6. Successful PCI of marginal 1 artery utilizing Synergy 2.75 x 12 mm drug-eluting stent. PLAN: The patient will be restarted on his Eliquis today. We will also start him on Plavix 75 p.o. daily as well as a baby aspirin if he can tolerate being on these 3 blood-thinning medications. If t he patient has any issues with bleeding, we will hold the aspirin and just continue the Eliquis and P lavix. /[id number]/MODL
[2017-10-07] MEDS: APIXABAN 5 MG TAB PO SCH (14:06)
[2017-10-07] MEDS: VERAPAMIL ER 180 MG TAB PO SCH (14:14)
[2017-10-07] MEDS: TRIAMTERENE/HCTZ 37.5/25 1 EACH TAB PO SCH (14:14)
--- NOTE | 2017-10-07 14:58 | ASMTCMCOM ---
CM Note CM Note Notes: 10/07/2017 Case Management Note Discussed pt during interdisciplinary rounds this morning. Pt was admitted for CP, dsypnea, SOB. He was in the minilab operator this morning during rounds. There are no identified d/c case management needs d/t age, family support and activity levels prior to admission. There are no PT or OT evals ordered at this time. Case Management d/c poc: anticipating independent Case Management follow. Date Signed: 10/07/2017 02:58 PM Electronically Signed By:Lucrecia Mcdonald RN
--- NOTE | 2017-10-07 17:55 | HOSPPROG ---
Hospitalist Progress Note Assessment/Plan: DIAGNOSES: -acute exertional dyspnea and chest/arm discomfort suggesting unstable angina pectoralis in man with previous bypass surgery -10/16 previous bypass grafts are open on angiography today -severe diffuse [place] vessel coronary disease on angiography today, with stenting of an op his marginal off the LAD that had a proximal 95 % stenosis in that branch, with milder disease present in the more distal LAD proper -mildly decreased LV function at 40-45% on ventriculogram and 45-50% on echocardiogram -mildly elevated hemoglobin A1c with minimal elevations of blood sugar here -history of sleep apnea with use of CPAP -chronic back pain on chronic prescribed narcotic medication -obesity PLANS: At this point will allow the patient to recover fully from the sedation for his procedure Once more awake begin ambulation and see how much improvement we have in his symptoms Depending on results consider other possible assessments. May need to look at pulmonary function if he continues to have exertional dyspnea as he presented with, and would review his cardiac issues with Dr. Gross also in that case to see if any other medication change may be useful for his severe diffuse coronary disease Follow his sugars here and recommend that he follow up with his primary care physician to look at diet and other lifestyle changes as initial therapy for his blood sugar issues but it will need to be followed closely long-term. At this time no specific indication to begin medication therapy for this and this is sugars become more problematic here. As will need to continue to watch his arterial access site here, further assess his response symptomatic lead to his procedure today, and consider other possible further assessments of his cardiac and pulmonary functions and treatment will need to change to inpatient care at this time. SUBJECTIVE: Feels quite groggy and woozy after the sedation 1st procedure, no other side effects, no pain or discomfort at his access site No dyspnea or chest discomfort at rest in bed OBJECTIVE Vitals reviewed: Stable round without fever Line Service Supervisor, my review: Sinus rhythm with some PVCs, no other significant arrhythmia Exam: alert oriented skin warm dry color ok resps not labored lungs clear BSs heart regular abd soft nondistended nontender, bowel sounds present limbs warm, no edema iv site ok Laboratory data: Troponin negative D-dimer was elevated though he is on full-dose anticoagulant Hemoglobin A1c 6.4 Objective: Vital Signs Temp Pulse Resp BP Pulse Ox 36.8 C 82 16 110/72 96 10/07/17 15:18 10/07/17 15:18 10/07/17 15:18 10/07/17 15:18 10/07/17 15:18 10/06/17 10/07/17 10/08/17 06:59 06:59 06:59 Intake Total 1100 420 Output Total 2450 1025 Balance -1350 -605 PT 18.0 SEC (12.0-15.0) H 10/06/17 15:24 INR 1.47 (0.83-1.16) H 10/06/17 15:24 - Time Spent With Patient Time Spent with Patient: greater than 35 minutes Time Spent with Patient: Greater than 35 minutes spent on this patients care, greater than 50% of time spent counseling, educating, and coordinating care regarding the above mentioned plan. ICD10 Worksheet Patient Problems: Problems Problem Status Onset Atrial fibrillation Acute Chest pain Acute History of coronary artery disease Acute
[2017-10-07] MEDS: ATORVASTATIN CALCIUM 40 MG TAB PO SCH (20:42)
[2017-10-07] MEDS: diphenhydrAMINE 25 MG CAP PO PRN (23:34)
[2017-10-07] MEDS: DOXAZOSIN MESYLATE 4 MG TAB PO SCH (23:34)
[2017-10-08 04:31] LABS: PLATELET COUNT 191 10^3/uL (150-400)
--- NOTE | 2017-10-08 07:14 | PDCARPN ---
Cardiology Progress Note Chief Complaint: SOB/CP Assessment/Plan: Assessment: s/p CABG 2010 SOB CP AF Plan: 10/07/17 09:13 Plan for cath this AM NPO d/w patient/family--agreeable with possible risks of procedure 10/08/17 07:11 Stable Still has mild GARCÍA however patient does have moderate-severe pulmonary HTN ( most likely from his sleep apnea) AF stable Would continue eliquis, plavix, and baby ASA OK for d/c from CV perspective--patient would like to f/u with his primary [place] ur coordinator Subjective: mild GARCÍA Reviewed/Discussed With: multidisciplinary team Time Spent With Patient: 25 min Objective: Vital Signs (8 Hrs) Temp Pulse Resp BP Pulse Ox 10/08/17 03:41 36.7 C 63 13 118/69 98 10/07/17 23:30 36.7 C 65 13 109/76 96 Intake/Output (24 Hrs) 10/07/17 10/08/17 10/09/17 05:59 05:59 05:59 Intake Total 1100 1060 Output Total 2450 1575 Balance -1350 -515 Intake: Oral (ml) 600 1060 IV Infused (ml) 500 Output: Urine (ml) 2450 1575 Toilet 650 Urinal 1800 1575 Other: Weight 133.158 kg 134.462 kg Intake Quantity Yes Sufficient Number of Voids 1 Toilet 3 Urinal 1 Result Diagrams: 10/08/17 03:25 10/08/17 03:25 Cardiac Labs: Cardiac Lab Results (72 Hrs) 10/06/17 19:59 Troponin I < 0.012 - Physical Exam Constitutional: healthy appearing Eyes: PERRL Ears, Nose, Mouth, Throat: moist mucous membranes Cardiovascular: irregularly irregular Peripheral Pulses: 1+: femoral (R), femoral (L) Gastrointestinal: normoactive bowel sounds Genitourinary: no suprapubic tenderness Skin: no rashes Musculoskeletal: no muscular tenderness Neurologic: AAOx3 Psychiatric: cooperative ICD10 Worksheet Patient Problems: Problems Problem Status Onset Atrial fibrillation Acute Chest pain Acute History of coronary artery disease Acute
[2017-10-08 07:18] VITALS: TEMP 98.2
--- NOTE | 2017-10-08 08:52 | CPEKG ---
Heart Rate: 76 RR Interval: 789 QRSD Interval: 116 QT Interval: 396 QTC Interval: 446 QRS [facility]: 46 T Wave [facility]: -80 EKG Severity - ABNORMAL ECG - EKG Impression: ATRIAL FIBRILLATION WITH REGULARIZED VENTRICULAR RESPONSE CONSIDER SOME DEGREE EKG Impression: OF AV BLOCK EKG Impression: VENTRICULAR PREMATURE COMPLEX EKG Impression: NONSPECIFIC INTRAVENTRICULAR CONDUCTION DELAY Electronically Signed By: Federico Siddiqui 09-Oct-2017 10:36:15
[2017-10-08] MEDS ORDERED: CLOPIDOGREL BISULFATE 75 MG TAB PO SCH (09:00)
[2017-10-08] MEDS ORDERED: APIXABAN 5 MG TAB PO SCH (09:00)
[2017-10-08] MEDS ORDERED: ASPIRIN 81 MG CHEWABLE TAB PO SCH (09:00)
--- NOTE | 2017-10-08 09:21 | PDDCSUM ---
Discharge Summary Discharge Summary: DISCHARGE DIAGNOSES: -unstable angina pectoralis with exertional anginal symptoms -worsening exertional dyspnea, multifactorial etiology -CAD with 4 of 4 patent saphenous vein bypass grafts on angiography, severe diffuse [place] coronary disease with a 95% stenosis of a proximal portion of marginal branch of LAD which was stented -pulmonary hypertension CONSULTANTS: Dr Miller PROCEDURES: -coronary angiography, left ventriculogram, stent placement to proximal marginal branch of left anterior descending artery -echocardiogram HOSPITAL COURSE SUMMARY: This patient with chronic heart disease including a bypass surgery comes in the hospital at this time complaining of exertional dyspnea that is worsening over time and exertional pain in his shoulder down into his arm. The symptoms reminded him of previous angina symptoms. He rule out for myocardial infarction and did not have congestive heart failure. There is no evidence of a pneumonia. He had an elevated D-dimer but he is on chronic Eliquis therapy at appropriate doses and is not clinically felt at the bedside to have pulmonary embolism. He takes the Eliquis for history of atrial fibrillation, though is in sinus rhythm here with no other concerning arrhythmias. Vital signs were stable. Because the patient has a history of coronary disease and symptoms reminding him of previous angina he underwent coronary angiography. His for vein bypass grafts were all patent but he has severe diffuse coronary disease. The most significant lesion was a 95% stenosis in the proximal portion of marginal branch off the LAD. There was some distal LAD disease beyond that but nothing of critical nature. The right was nearly occluded but had some collateral flow. It was elected to place a stent in the marginal branch of the LAD which was done successfully without complication. Will have to give some time to see how much this improves his exertional symptoms. The patient is fairly obese and is noted to have pulmonary hypertension on his echocardiogram. He has sleep apnea and has recently started on CPAP therapy. It is unknown whether he has a obesity related awake hypoventilation syndrome or any other lung issues at this time. Certainly there does not appear to be anything acute. At this point is recommended that he seek care from a family medicine resident which she has never done before. Is strongly recommended to him that he continue his CPAP therapy and consider weight loss and physical activity on a regular basis. It could be very helpful for him to have referral to pulmonary and cardiac rehabilitation programs. At this point he is stable for discharge from the hospital. PENDING TEST RESULTS: None MEDICATION CHANGES: Addition of Plavix 75 mg daily and aspirin 81 mg daily FOLLOW-UP PLAN: He is referred to [facility] or [facility] for assessment of his respiratory symptoms and pulmonary hypertension He will follow up with his existing primary records management assistant in [place] or else make an appointment at [facility] per his choice, he is investigating insurance coverage He is encouraged to seek out referrals to pulmonary rehabilitation and cardiac rehabilitation programs which will require specialist referral Greater than 35 minutes bedside and care coordination time today
[2017-10-08] MEDS: VERAPAMIL ER 180 MG TAB PO SCH (10:21)
[2017-10-08] MEDS: TRIAMTERENE/HCTZ 37.5/25 1 EACH TAB PO SCH (10:22)
[2017-10-08 11:41] VITALS: BP 123/70; PULSE 86; RESP 14; O2SAT 92
--- NOTE | 2017-10-08 15:43 | ASDISCHSUM ---
Discharge Information Plan Status:Home with No Needs Medically Cleared to Leave:10/08/2017 Discharge Date:10/08/2017 01:30 PM CM D/C Disposition:Home, Routine, Self-Care ADT D/C Disposition:Home, Routine, Self-Care Projected Discharge Date:10/08/2017 01:30 PM Transportation at D/C: Discharge Delay Reason: Follow-Up Date:10/08/2017 01:30 PM Discharge Slot: Final Diagnosis: Placement Information Patient Contact Information Contact Name:BAMBI Relationship:Daughter Address: Work Phone: City:[place] Alternate Phone: [facility]/Zip Code:[place] Email: Financial Information Financial Class:Medicare Advantage Plans Primary Plan Desc:[facility] ADVANTAGE PLANS Primary Plan Number:[id number] Secondary Plan Desc: Secondary Plan Number: Assessment Information LACE LACE Length of stay for Answers: 1 day current admission Comorbidities - select Answers: Coronary Artery Disease all that apply Opioid dependence / Chronic pain # of Emergency department Answers: 1-2 visits in the last 6 months Score: 8 Date Signed: 10/08/2017 03:41 PM Electronically Signed By:Lucrecia Mcdonald RN [facility] Progress Note CM Note CM Note Notes: 10/07/2017 Case Management Note Discussed pt during interdisciplinary rounds this morning. Pt was admitted for CP, dsypnea, SOB. He was in the nitriles lab technician this morning during rounds. There are no identified d/c case management needs d/t age, family support and activity levels prior to admission. There are no PT or OT evals ordered at this time. Case Management d/c poc: anticipating independent Case Management follow. Date Signed: 10/07/2017 02:58 PM Electronically Signed By:Lucrecia Mcdonald RN Intervention Information Intervention Type:*NABEEL-Signed Date of Service:10/07/2017 03:34 PM Patient Type:Observation Staff Member:Amanda Gary Hours: Discipline: Severity: Comment:
== END 2017-10-08 13:30 | disposition home or self-care (01) ==
LOC: F2W 16:59
PROVIDERS: ADMIT Internal Medicine; ATTEND Internal Medicine
PROC: 4A023N8 Measurement of Cardiac Sampling and Pressure, Bilateral, Percutaneous Approach (ICD-10-PCS; principal; 2017-10-06)
PROC: B2151ZZ Fluoroscopy of Left Heart using Low Osmolar Contrast (ICD-10-PCS; principal; 2017-10-06)
PROC: B2111ZZ Fluoroscopy of Multiple Coronary Arteries using Low Osmolar Contrast (ICD-10-PCS; principal; 2017-10-06)
DX: I20.9 Angina pectoris, unspecified (principal); R06.00 Dyspnea, unspecified
CPT/HCPCS: 71045; 93005; 93306; 93461; 99285; C1725; C1760; C1769; C1874; C1887; C9600; G0378; J0583; J1644; J2250; Q9967; J3010

== ENCOUNTER 2018-06-12 13:09 | Inpatient (IN) | payer OTHER ==
--- NOTE | 2018-06-12 13:21 | EDPHY ---
H & P - Medical/Surgical History Hx Asthma: No Hx Chronic Respiratory Disease: No Hx Diabetes: No Hx Cardiac Disease: Yes Hx Renal Disease: No Hx Cirrhosis: No Hx Alcoholism: No Hx HIV/AIDS: No Hx Splenectomy or Spleen Trauma: No Other PMH: LA stents 93. open heart 2010, ramírez, afib on eliquis - Social History Smoking Status: Never smoked Time Seen by Provider: 06/12/18 13:13 HPI/ROS: CHIEF COMPLAINT: "I think my hip is dislocated" HISTORY OF PRESENT ILLNESS: 68-year-old male arrives via ambulance complaining of acute right hip pain. He is postoperative day 2 post right hip arthroplasty by Dr. Jefferson Dupree at [facility]. He describes feeling well, ambulating well. Shortly before arrival however he was bending over to puting on his socks and felt his hip dislocate. He is unable to bear weight. Denies trauma or fall. Last oral intake 8:00 a.m.today REVIEW OF SYSTEMS: 10 systems reviewed and negative with the exception of the elements mentioned in the history of present illness PAST MEDICAL & SURGICAL HISTORY: Postop day 2 post right hip arthroplasty SOCIAL HISTORY: nonsmoker PHYSICAL EXAM (Prior to examination, patient consented to physical exam, hands were washed and my usual and customary physical exam procedures followed) 1) GENERAL: Well-developed, well-nourished, alert and oriented. Answering questions appropriately. 2) HEAD: Normocephalic, atraumatic 3) HEENT: Sclera anicteric. 4) NECK: Full range of motion, no meningeal signs. 5) LUNGS: Clear auscultation bilaterally, no wheezes, no rhonchi, no retractions. 6) HEART: Regular rate and rhythm, no murmur, no heave, no gallop. 7) ABDOMEN: [No guarding, no rebound, no focal tenderness,, 8) MUSCULOSKELETAL: Right lower extremity: Shortened, externally rotated. Intact skin with the exception of surgical scars which are granulating appropriately with no signs of infection or dehiscence. Distal DP PT pulses present and brisk. Brisk capillary refill. Soft compartments. Otherwise, Moving all extremities, no focal areas of tenderness, no obvious trauma. No peripheral edema or discoloration. 9) BACK: No visual or palpable abnormality. 10) SKIN: No rash, no petechiae. 11) Psychiatric: Patient is oriented X 3, there is no agitation. DIFFERENTIAL DIAGNOSIS: In no particular order including but not limited to periprosthetic fracture, sprain, strain, dislocation (Marcel,Kirk Ellie) Constitutional: Initial Vital Signs Temperature (C) 36.7 C 06/12/18 13:15 Heart Rate 109 H 06/12/18 13:15 Respiratory Rate 16 06/12/18 13:15 Blood Pressure 148/99 H 06/12/18 13:15 O2 Sat (%) 88 L 06/12/18 13:15 O2 Delivery Mode [Post Nasal Cannula Procedure 3rd] O2 Delivery Mode [Post Oxymask Procedure 2nd] O2 Delivery Mode [Post Oxymask Procedure 1st] O2 Delivery Mode [Procedural Oxymask 2nd] O2 Delivery Mode [Procedural Oxymask 1st] O2 Delivery Mode [.Immediate Oxymask Pre-Procedure] O2 Delivery Mode Room Air O2 (L/minute) [Post Procedure 4 3rd] O2 (L/minute) [Post Procedure 5 2nd] O2 (L/minute) [Post Procedure 15 1st] O2 (L/minute) [Procedural 2nd] 15 O2 (L/minute) [Procedural 1st] 15 O2 (L/minute) [.Immediate Pre- 15 Procedure] Allergies/Adverse Reactions: hydromorphone [From Dilaudid] Allergy (Severe, Verified 10/06/17 16:11) "FLATLINES, HEART STOPS" morphine Allergy (Severe, Verified 10/06/17 16:11) "FLATLINES, HEART STOPS" Home Medications: Medication Instructions Recorded Atorvastatin Calcium 80 mg PO HS 10/06/17 Nitroglycerin [Nitrostat 0.4 mg 0.4 mg SL Q5M PRN 10/06/17 (*)] Triamterene/Hctz 37.5/25 1 tab PO DAILY 10/06/17 [Maxzide-25 (*)] oxyCODONE IR [Oxycodone Ir (*)] 5 - 10 mg PO Q3H PRN 10/06/17 Aspirin [Aspirin 81mg (*)] 81 mg PO BID 06/12/18 Cefadroxil 500mg Tab 500 mg PO BID 06/12/18 Diazepam [Valium 5 MG (*)] 5 mg PO BID PRN 06/12/18 Doxazosin Mesylate [Cardura 4 MG 4 mg PO HS 06/12/18 (*)] Meloxicam 7.5 mg PO DAILY 06/12/18 Verapamil ER [Calan SR/ER 180MG 180 mg PO DAILY 06/12/18 (*)] Medical Decision Making - Diagnostics Imaging Results: Imaging Impressions Hip X-Ray 06/12/18 13:18 Impression: 1. Dislocated right hip replacement. ED Course/Re-evaluation: Care of patient under supervision of primary supervising physician Dr fidencio Oneil with whom I discussed case. 3:30 p.m. the patient requested analgesia. He had previously informed me in nursing staff that with morphine and Dilaudid he"flat lined". He has been taking oxycodone with no adverse effect. He requested analgesia and was hesitant to receive anything in the ER until he spoke with his daughter. He has spoken with his daughter. At this time he requests fentanyl. Will be kept on a quality assurance monitor. (Kirk Rod) Other Provider: Independent physician evaluation: I evaluated and participated in the management of the patient. I also evaluated the patient independently. My co-signature indicates that I have reviewed this chart and I agree with the findings and plan of care as documented. My personal H&P findings include: The patient presents to the ED with a postoperative prosthetic right hip dislocation. The patient has no complaints of numbness or weakness. He is 2 days postop. Physical exam: Elderly male, no acute distress General Appearance: Elderly male, no acute distress Eyes: Pupils equal and round no pallor or injection ENT, Mouth: Mucous membranes moist Respiratory: There are no retractions, lungs are clear to auscultation Cardiovascular: Regular rate and rhythm Gastrointestinal: Abdomen is soft and nontender, no masses, bowel sounds normal Neurological: Sensation intact throughout the right lower extremity, normal motor exam Skin: Warm and dry, no rashes Musculoskeletal: Neck is supple nontender Extremities: symmetrical, full range of motion ED course: The patient underwent conscious sedation on attempted close reduction by myself which was unsuccessful. Procedures: Procedure: Conscious sedation. Indication: Hip dislocation The patient is an appropriate candidate to tolerate procedural sedation. The patient's vital signs and mental status are appropriate. The risks, benefits and alternatives of the sedation were discussed with the patient. The patient is ASA classification 1. The patient's Mallampati airway score was 2 and the patient did meet the 3-3-2 airway measurements. A time out was completed. The patient was sedated with the 80 mg of propofol. The patient was monitored with continuous pulse oximetry, cafeteria monitor and end tidal CO2. There were no complications and no significant hypoxemia. I performed both the sedation and the procedure. The total time I spent at the bedside during the procedural sedation was a 16 minutes. The patient was examined after the procedural sedation and has returned to their pre-sedation baseline with normal vital signs and a normal examination. The reduction was unsuccessful. I have paged Dr. Olguin from Orthopedic surgery at 2:25pm. I spoke with Dr. Olguin his PA at 2:54pm they will make arrangements to take him to the operating room this evening. He will likely go for close reduction at a 5:00 p.m.. The patient will likely be admitted to the hospital following his close reduction. The patient will be admitted to the hospitalist service per the request of Dr. Olguin. (Riley Oneil) - Data Points Laboratory Results: Laboratory Results 06/12/18 11:30 06/12/18 11:30 06/12/18 06/12/18 06/12/18 11:30 11:30 11:30 WBC 20.09 10^3/uL H 10^3/uL (3.80-9.50) RBC 3.82 10^6/uL L 10^6/uL (4.40-6.38) Hgb 11.9 g/dL L g/dL (13.7-17.5) Hct 35.0 % L % (40.0-51.0) MCV 91.6 fL fL (81.5-99.8) MCH 31.2 pg pg (27.9-34.1) MCHC 34.0 g/dL g/dL (32.4-36.7) RDW 13.8 % % (11.5-15.2) Plt Count 182 10^3/uL 10^3/uL (150-400) MPV 9.0 fL fL (8.7-11.7) Neut % (Auto) Not Reported Lymph % (Auto) Not Reported [place] % (Auto) Not Reported Eos % (Auto) Not Reported Baso % (Auto) Not Reported Nucleat RBC Rel Count Not Reported Absolute Neuts (auto) Not Reported Absolute Lymphs (auto) Not Reported Absolute Monos (auto) Not Reported Absolute Eos (auto) Not Reported Absolute Basos (auto) Not Reported Absolute Nucleated RBC Not Reported Immature Gran % Not Reported Seg Neutrophils % 79.0 % % Band Neutrophils % 2.0 % % Lymphocytes % 13.0 % % Monocytes % 3.0 % % Eosinophils % 2.0 % % Basophils % 1.0 % % Metamyelocytes % 0.0 % % Myelocytes % 0.0 % % Promyelocytes % 0.0 % % Blast Cells % 0.0 % % Immature Gran # Not Reported Absolute Seg Neuts 15.87 10^3/uL H 10^3/uL (1.70-6.50) Absolute Band Neuts 0.40 10^3/uL 10^3/uL (0.00-0.70) Absolute Lymphocytes 2.61 10^3/uL 10^3/uL (1.00-3.00) Absolute Monocytes 0.60 10^3/uL 10^3/uL (0.30-0.80) Absolute Eosinophils 0.40 10^3/uL 10^3/uL (0.03-0.40) Absolute Basophils 0.20 10^3/uL H 10^3/uL (0.02-0.10) Absolute Metamyelocyte 0.00 10^3/mL 10^3/mL (0.00-0.00) Absolute Myelocytes 0.00 10^3/mL 10^3/mL (0.00-0.00) Absolute Promyelocytes 0.00 10^3/uL 10^3/uL (0.00-0.00) Absolute Plasma Cells 0.00 10^3/uL 10^3/uL (0.00-0.00) Nucleated RBCs 0 /100 WBC /100 WBC (0-0) Absolute Blast Cells 0.00 10^3/uL 10^3/uL (0.00-0.00) Plasma Cells % 0.0 % % Platelet Estimate ADEQUATE (ADEQ) Oval Macrocytes 1+ H Schistocytes 1+ H PT 14.5 SEC SEC (12.0-15.0) INR 1.11 (0.83-1.16) APTT 27.3 SEC SEC (23.0-38.0) Sodium 134 mEq/L L mEq/L (135-145) Potassium 4.6 mEq/L mEq/L (3.3-5.0) Chloride 102 mEq/L mEq/L (97-110) Carbon Dioxide 26 mEq/l mEq/l (22-31) Anion Gap 6 mEq/L mEq/L (6-14) BUN 23 mg/dL mg/dL (7-23) Creatinine 0.8 mg/dL mg/dL (0.7-1.3) Estimated GFR > 60 Glucose 100 mg/dL mg/dL (70-100) Calcium 8.0 mg/dL L mg/dL (8.5-10.4) Medications Given: Discontinued Medications Fentanyl (Sublimaze) 50 mcg IVP EDNOW ONE Stop: 06/12/18 15:30 Last Admin: 06/12/18 15:33 Dose: 50 mcg Sodium Chloride (Ns) 1,000 mls @ 0 mls/hr IV EDNOW ONE; Wide Open PRN Reason: Protocol Stop: 06/12/18 14:20 Last Admin: 06/12/18 14:20 Dose: 1,000 mls Propofol (Diprivan) 80 mg IVP EDNOW ONE Stop: 06/12/18 14:01 Last Admin: 06/12/18 14:00 Dose: 80 mg Departure - Departure Disposition: To OP Cath/Surgery Clinical Impression: Posterior dislocation of right hip, initial encounter Condition: Fair
[2018-06-12] MEDS ORDERED: PROPOFOL/EMULSION 1,000 MG/100 ML BOTTLE IV ONE (13:56)
[2018-06-12] MEDS ORDERED: PROPOFOL 200 MG/20 ML VIAL IVP ONE (14:00)
[2018-06-12] MEDS ORDERED: NS 1,000 ML IV ONE (14:19)
[2018-06-12] MEDS ORDERED: fentaNYL 100 MCG/2 ML INJ IVP ONE (15:29)
[2018-06-12 15:36] LABS: PLATELET COUNT 182 10^3/uL (150-400)
[2018-06-12 15:46] LABS: INR 1.11 (0.83-1.16); PROTIME(PATIENT) 14.5 SEC (12.0-15.0)
[2018-06-12] MEDS ORDERED: ONDANSETRON 4 MG/2 ML VIAL IVP PRN (15:54)
[2018-06-12] MEDS ORDERED: ONDANSETRON DISINTEGRATING 4 MG TAB PO PRN (15:54)
[2018-06-12] MEDS ORDERED: ACETAMINOPHEN 325 MG TAB PO PRN (15:54)
[2018-06-12] MEDS ORDERED: NS 1,000 ML IV SCH (16:00)
--- NOTE | 2018-06-12 16:22 | PDGENHP ---
<Brittany Suh - Last Filed: 06/12/18 17:40> History and Physical - Chief Complaint Right hip pain - History of Present Illness The 68 y/o male recently had a right hip arthroplasty on Saturday at [facility] by Dr. Jefferson Dupree. He was feeling fine until today after bending over attempting to put on a sock and felt his hip dislocate. Unable to bear weight. Denies trauma or fall. Denies chest pains, SOB, fever, chills, N/V. Emergency room unsuccessful with reduction. Dr. Tatyana Olguin to perform closed reduction. Hip X-ray: Dislocated right hip replacement Pelvic x-ray: Persistent dislocated right hip Past Medical/Surgical History 1. Atrial Fibrillation (On Eliquis; last dose was 06/07) 2. CAD (Stents in 1992 and CABG 2010) 3. AMINTA with CPAP 4. Obesity 5. Chronic low back pain Social 1. Lives with his girlfriend, Tasha 2. Denies tobacco or illicit drug use, occasionally drinks one beer at dinner Vital Signs 124/83 103 HR 18 Respirations 97% 4 L NC 36.6 History Information - Allergies/Home Medication List Allergies/Adverse Reactions: hydromorphone [From Dilaudid] Allergy (Severe, Verified 10/06/17 16:11) "FLATLINES, HEART STOPS" morphine Allergy (Severe, Verified 10/06/17 16:11) "FLATLINES, HEART STOPS" Home Medications: Atorvastatin Calcium 80 mg PO HS 10/06/17 [Last Taken 06/09/18] Nitroglycerin [Nitrostat 0.4 mg (*)] 0.4 mg SL Q5M PRN 10/06/17 [Last Taken Unknown] Triamterene/Hctz 37.5/25 [Maxzide-25 (*)] 1 tab PO DAILY 10/06/17 [Last Taken ] oxyCODONE IR [Oxycodone Ir (*)] 5 - 10 mg PO Q3H PRN 10/06/17 [Last Taken Unknown] Aspirin [Aspirin 81mg (*)] 81 mg PO BID 06/12/18 [Last Taken 06/12/18] Cefadroxil 500mg Tab 500 mg PO BID 06/12/18 [Last Taken 06/12/18] Diazepam [Valium 5 MG (*)] 5 mg PO BID PRN 06/12/18 [Last Taken 06/12/18] Doxazosin Mesylate [Cardura 4 MG (*)] 4 mg PO HS 06/12/18 [Last Taken 06/11/18] Meloxicam 7.5 mg PO DAILY 06/12/18 [Last Taken 06/12/18] Verapamil ER [Calan SR/ER 180MG (*)] 180 mg PO DAILY 06/12/18 [Last Taken ] I have personally reviewed and updated: family history, medical history, social history, surgical history Past Medical History: See HPI List - Past Medical History atrial fibrillation (Permanent on Eliquis), coronary artery disease (With cardiac stents in the and CABG several years ago) Additional medical history: AMINTA on CPAP. Morbid obesity. Chronic lower back pain - Surgical History Additional surgical history: CABG, cardiac stents, back surgery 1 year ago, epidural injection 3 weeks ago - Family History Additional family history: Father of a myocardial infarction at age 38, grandfather had a myocardial infarction at age 50, family history of hyperlipidemia - Social History Smoking Status: Never smoked Alcohol Use: Occasionally Drug Use: None Additional social history: Independent in his ADLs comma chronically gets short of breath with exercise Review of Systems Review of Systems: ROS: 10pt was reviewed & negative except for what was stated in HPI & below Constitutional: Reports: recent injury EENMT: Reports: no symptoms Cardiac: Reports: no symptoms Respiratory: Reports: no symptoms Gastrointestinal: Reports: no symptoms Genitourinary: Reports: no symptoms Muscolosketal: Reports: joint pain, joint swelling Skin: Reports: other (Surgical incision C/D/I) Neurological: Reports: no symptoms Hematologic/Lymphatic: Reports: no symptoms Immunologic/Allergy: Reports: other (Pt is currently using oxycodone IR for surgical post-op pain. ) Physical Exam Physical Exam: Temp Pulse Resp BP Pulse Ox 36.6 C 103 H 18 124/83 H 97 06/12/18 15:37 06/12/18 15:37 06/12/18 15:37 06/12/18 15:37 06/12/18 15:37 O2 (L/minute) 4 Constitutional: obese, uncomfortable Eyes: PERRL, anicteric sclera, EOMI Ears, Nose, Mouth, Throat: moist mucous membranes, hearing normal, ears appear normal, no oral mucosal ulcers Cardiovascular: regular rate and rhythym, no murmur, rub, or gallop, tachycardia , No edema Peripheral Pulses: 2+: dorsalis-pedis (R) (Radial 2+), dorsalis-pedis (L) ( Radial 2+) Respiratory: no respiratory distress, no rales or rhonchi, clear to auscultation Gastrointestinal: normoactive bowel sounds, soft, non-tender abdomen, no palpable masses Genitourinary: no bladder fullness, no bladder tenderness Skin: warm, normal color, no rashes or abrasions, no fluctuance, no induration, other (Right surgical incision is C/D/I, surgical dressing intact), No mottled Musculoskeletal: joint tenderness, pain with ROM (RLE externally rotated; unable to move joint) Neurologic: AAOx3, sensation intact bilaterally, CN II-XII Intact Psychiatric: interacting appropriately, not anxious, not encephalopathic, thought process linear Lymph, Heme, Immunologic: no cervical LAD, no supraclavicular LAD Lab Data & Imaging Review 06/12/18 11:30 06/12/18 11:30 WBC 20.09 10^3/uL (3.80-9.50) H 06/12/18 11:30 RBC 3.82 10^6/uL (4.40-6.38) L 06/12/18 11:30 Hgb 11.9 g/dL (13.7-17.5) L 06/12/18 11:30 Hct 35.0 % (40.0-51.0) L 06/12/18 11:30 MCV 91.6 fL (81.5-99.8) 06/12/18 11:30 MCH 31.2 pg (27.9-34.1) 06/12/18 11:30 MCHC 34.0 g/dL (32.4-36.7) 06/12/18 11:30 RDW 13.8 % (11.5-15.2) 06/12/18 11:30 Plt Count 182 10^3/uL (150-400) 06/12/18 11:30 MPV 9.0 fL (8.7-11.7) 06/12/18 11:30 Neut % (Auto) Not Reported 06/12/18 11:30 Lymph % (Auto) Not Reported 06/12/18 11:30 Long % (Auto) Not Reported 06/12/18 11:30 Eos % (Auto) Not Reported 06/12/18 11:30 Baso % (Auto) Not Reported 06/12/18 11:30 Nucleat RBC Rel Count Not Reported 06/12/18 11:30 Absolute Neuts (auto) Not Reported 06/12/18 11:30 Absolute Lymphs (auto) Not Reported 06/12/18 11:30 Absolute Monos (auto) Not Reported 06/12/18 11:30 Absolute Eos (auto) Not Reported 06/12/18 11:30 Absolute Basos (auto) Not Reported 06/12/18 11:30 Absolute Nucleated RBC Not Reported 06/12/18 11:30 Immature Gran % Not Reported 06/12/18 11:30 Seg Neutrophils % 79.0 % 06/12/18 11:30 Band Neutrophils % 2.0 % 06/12/18 11:30 Lymphocytes % 13.0 % 06/12/18 11:30 Monocytes % 3.0 % 06/12/18 11:30 Eosinophils % 2.0 % 06/12/18 11:30 Basophils % 1.0 % 06/12/18 11:30 Metamyelocytes % 0.0 % 06/12/18 11:30 Myelocytes % 0.0 % 06/12/18 11:30 Promyelocytes % 0.0 % 06/12/18 11:30 Blast Cells % 0.0 % 06/12/18 11:30 Immature Gran # Not Reported 06/12/18 11:30 Absolute Seg Neuts 15.87 10^3/uL (1.70-6.50) H 06/12/18 11:30 Absolute Band Neuts 0.40 10^3/uL (0.00-0.70) 06/12/18 11:30 Absolute Lymphocytes 2.61 10^3/uL (1.00-3.00) 06/12/18 11:30 Absolute Monocytes 0.60 10^3/uL (0.30-0.80) 06/12/18 11:30 Absolute Eosinophils 0.40 10^3/uL (0.03-0.40) 06/12/18 11:30 Absolute Basophils 0.20 10^3/uL (0.02-0.10) H 06/12/18 11:30 Absolute Metamyelocyte 0.00 10^3/mL (0.00-0.00) 06/12/18 11:30 Absolute Myelocytes 0.00 10^3/mL (0.00-0.00) 06/12/18 11:30 Absolute Promyelocytes 0.00 10^3/uL (0.00-0.00) 06/12/18 11:30 Absolute Plasma Cells 0.00 10^3/uL (0.00-0.00) 06/12/18 11:30 Nucleated RBCs 0 /100 WBC (0-0) 06/12/18 11:30 Absolute Blast Cells 0.00 10^3/uL (0.00-0.00) 06/12/18 11:30 Plasma Cells % 0.0 % 06/12/18 11:30 Platelet Estimate ADEQUATE (ADEQ) 06/12/18 11:30 Oval Macrocytes 1+ H 06/12/18 11:30 Schistocytes 1+ H 06/12/18 11:30 PT 14.5 SEC (12.0-15.0) 06/12/18 11:30 INR 1.11 (0.83-1.16) 06/12/18 11:30 APTT 27.3 SEC (23.0-38.0) 06/12/18 11:30 Sodium 134 mEq/L (135-145) L 06/12/18 11:30 Potassium 4.6 mEq/L (3.3-5.0) 06/12/18 11:30 Chloride 102 mEq/L (97-110) 06/12/18 11:30 Carbon Dioxide 26 mEq/l (22-31) 06/12/18 11:30 Anion Gap 6 mEq/L (6-14) 06/12/18 11:30 BUN 23 mg/dL (7-23) 06/12/18 11:30 Creatinine 0.8 mg/dL (0.7-1.3) 06/12/18 11:30 Estimated GFR > 60 06/12/18 11:30 Glucose 100 mg/dL (70-100) 06/12/18 11:30 Calcium 8.0 mg/dL (8.5-10.4) L 06/12/18 11:30 Assessment & Plan Plan: 68 y/o male with right hip dislocation undergoing closed reduction by Dr. Clau cole. RCRI score is 1 with previous cardiac history. He meets SIRS criteria being tachycardic and leukocytosis but I suspect this is reactive to his injury and pain level therefore will not attain blood cultures. He is afebrile. Continue to monitor this. IVF for now until he is able to tolerate a regular diet. A-Fib and anti-coag post-operatively: uncertain when pt is able to re-start his Eliquis. For right now, SCDs and possible Lovenox subq tomorrow per recommendations from ortho. Holding his ASA and Meloxicam. He is on post-op prophylaxis Duricef. Continue to monitor his surgical incision. Diet: NPO for procedure kelsey, may ADAT post-op VTE ppx: SCDs for now, would appreciate ortho recommendation for post-op anti- coag Code: Full Dispo: Admit to obs <Sergio Jj - Last Filed: 06/12/18 23:34> History and Physical - History of Present Illness Review of Systems Review of Systems: Physical Exam Physical Exam: Temp Pulse Resp BP Pulse Ox 36.7 C 88 16 99/71 L 95 06/12/18 22:57 06/12/18 22:57 06/12/18 22:57 06/12/18 22:57 06/12/18 22:57 O2 (L/minute) 2 Lab Data & Imaging Review 06/12/18 11:30 06/12/18 11:30 WBC 20.09 10^3/uL (3.80-9.50) H 06/12/18 11:30 RBC 3.82 10^6/uL (4.40-6.38) L 06/12/18 11:30 Hgb 11.9 g/dL (13.7-17.5) L 06/12/18 11:30 Hct 35.0 % (40.0-51.0) L 06/12/18 11:30 MCV 91.6 fL (81.5-99.8) 06/12/18 11:30 MCH 31.2 pg (27.9-34.1) 06/12/18 11:30 MCHC 34.0 g/dL (32.4-36.7) 06/12/18 11:30 RDW 13.8 % (11.5-15.2) 06/12/18 11:30 Plt Count 182 10^3/uL (150-400) 06/12/18 11:30 MPV 9.0 fL (8.7-11.7) 06/12/18 11:30 Neut % (Auto) Not Reported 06/12/18 11:30 Lymph % (Auto) Not Reported 06/12/18 11:30 Long % (Auto) Not Reported 06/12/18 11:30 Eos % (Auto) Not Reported 06/12/18 11:30 Baso % (Auto) Not Reported 06/12/18 11:30 Nucleat RBC Rel Count Not Reported 06/12/18 11:30 Absolute Neuts (auto) Not Reported 06/12/18 11:30 Absolute Lymphs (auto) Not Reported 06/12/18 11:30 Absolute Monos (auto) Not Reported 06/12/18 11:30 Absolute Eos (auto) Not Reported 06/12/18 11:30 Absolute Basos (auto) Not Reported 06/12/18 11:30 Absolute Nucleated RBC Not Reported 06/12/18 11:30 Immature Gran % Not Reported 06/12/18 11:30 Seg Neutrophils % 79.0 % 06/12/18 11:30 Band Neutrophils % 2.0 % 06/12/18 11:30 Lymphocytes % 13.0 % 06/12/18 11:30 Monocytes % 3.0 % 06/12/18 11:30 Eosinophils % 2.0 % 06/12/18 11:30 Basophils % 1.0 % 06/12/18 11:30 Metamyelocytes % 0.0 % 06/12/18 11:30 Myelocytes % 0.0 % 06/12/18 11:30 Promyelocytes % 0.0 % 06/12/18 11:30 Blast Cells % 0.0 % 06/12/18 11:30 Immature Gran # Not Reported 06/12/18 11:30 Absolute Seg Neuts 15.87 10^3/uL (1.70-6.50) H 06/12/18 11:30 Absolute Band Neuts 0.40 10^3/uL (0.00-0.70) 06/12/18 11:30 Absolute Lymphocytes 2.61 10^3/uL (1.00-3.00) 06/12/18 11:30 Absolute Monocytes 0.60 10^3/uL (0.30-0.80) 06/12/18 11:30 Absolute Eosinophils 0.40 10^3/uL (0.03-0.40) 06/12/18 11:30 Absolute Basophils 0.20 10^3/uL (0.02-0.10) H 06/12/18 11:30 Absolute Metamyelocyte 0.00 10^3/mL (0.00-0.00) 06/12/18 11:30 Absolute Myelocytes 0.00 10^3/mL (0.00-0.00) 06/12/18 11:30 Absolute Promyelocytes 0.00 10^3/uL (0.00-0.00) 06/12/18 11:30 Absolute Plasma Cells 0.00 10^3/uL (0.00-0.00) 06/12/18 11:30 Nucleated RBCs 0 /100 WBC (0-0) 06/12/18 11:30 Absolute Blast Cells 0.00 10^3/uL (0.00-0.00) 06/12/18 11:30 Plasma Cells % 0.0 % 06/12/18 11:30 Platelet Estimate ADEQUATE (ADEQ) 06/12/18 11:30 Oval Macrocytes 1+ H 06/12/18 11:30 Schistocytes 1+ H 06/12/18 11:30 PT 14.5 SEC (12.0-15.0) 06/12/18 11:30 INR 1.11 (0.83-1.16) 06/12/18 11:30 APTT 27.3 SEC (23.0-38.0) 06/12/18 11:30 Sodium 134 mEq/L (135-145) L 06/12/18 11:30 Potassium 4.6 mEq/L (3.3-5.0) 06/12/18 11:30 Chloride 102 mEq/L (97-110) 06/12/18 11:30 Carbon Dioxide 26 mEq/l (22-31) 06/12/18 11:30 Anion Gap 6 mEq/L (6-14) 06/12/18 11:30 BUN 23 mg/dL (7-23) 06/12/18 11:30 Creatinine 0.8 mg/dL (0.7-1.3) 06/12/18 11:30 Estimated GFR > 60 06/12/18 11:30 Glucose 100 mg/dL (70-100) 06/12/18 11:30 Calcium 8.0 mg/dL (8.5-10.4) L 06/12/18 11:30 Assessment & Plan Assessment: Posterior dislocation of right hip, initial encounter (Acute) Plan: I have reviewed and examined the patient with Marley Suh NP and agree with plan outlined above. Please see my separate note for details.
[2018-06-12] MEDS ORDERED: LR 1,000 ML IV ONE (16:56)
[2018-06-12] MEDS ORDERED: fentaNYL 100 MCG/2 ML INJ ONE (17:19)
[2018-06-12] MEDS ORDERED: fentaNYL 100 MCG/2 ML INJ IVP PRN ×2 (17:22→18:41)
[2018-06-12] MEDS ORDERED: NITROGLYCERIN 0.4 MG BTL SL PRN (17:35)
[2018-06-12] MEDS ORDERED: DIAZEPAM 5 MG TAB PO PRN (17:35)
[2018-06-12] MEDS ORDERED: MIDAZOLAM 2 MG/2 ML VIAL ONE (17:44)
[2018-06-12] MEDS ORDERED: MIDAZOLAM 2 MG/2 ML VIAL IVP ONE (17:49)
--- NOTE | 2018-06-12 17:49 | PDANEPAE ---
ANE Past Medical History - Cardiovascular History Hx Hypertension: Yes Hx Arrhythmias: Yes Hx Coronary Artery / Peripheral Vascular Disease: Yes - Pulmonary History Hx Oxygen in Use at Home: Yes O2 in Use at Home (L/minute): 2 Hx Sleep Apnea: Yes Pulmonary History Comment: pulmonary hypertension - Endocrine History Hx Diabetes: No - Chronic Pain History Chronic Pain: Yes (Back, Right hip, leg) ANE Review of Systems Review of Systems: ANE Patient History - Allergies Allergies/Adverse Reactions: hydromorphone [From Dilaudid] Allergy (Severe, Verified 10/06/17 16:11) "FLATLINES, HEART STOPS" morphine Allergy (Severe, Verified 10/06/17 16:11) "FLATLINES, HEART STOPS" - Home Medications Home Medications: Atorvastatin Calcium 80 mg PO HS 10/06/17 [Last Taken 06/09/18] Nitroglycerin [Nitrostat 0.4 mg (*)] 0.4 mg SL Q5M PRN 10/06/17 [Last Taken Unknown] Triamterene/Hctz 37.5/25 [Maxzide-25 (*)] 1 tab PO DAILY 10/06/17 [Last Taken ] oxyCODONE IR [Oxycodone Ir (*)] 5 - 10 mg PO Q3H PRN 10/06/17 [Last Taken Unknown] Aspirin [Aspirin 81mg (*)] 81 mg PO BID 06/12/18 [Last Taken 06/12/18] Cefadroxil 500mg Tab 500 mg PO BID 06/12/18 [Last Taken 06/12/18] Diazepam [Valium 5 MG (*)] 5 mg PO BID PRN 06/12/18 [Last Taken 06/12/18] Doxazosin Mesylate [Cardura 4 MG (*)] 4 mg PO HS 06/12/18 [Last Taken 06/11/18] Meloxicam 7.5 mg PO DAILY 06/12/18 [Last Taken 06/12/18] Verapamil ER [Calan SR/ER 180MG (*)] 180 mg PO DAILY 06/12/18 [Last Taken ] - NPO status NPO Since - Liquids (Date): 06/12/18 NPO Since - Liquids (Time): 13:00 NPO Since - Solids (Date): 11/29/18 NPO Since - Solids (Time): 08:00 - Smoking Hx Smoking Status: Never smoked - Alcohol Use Alcohol Use: Occasionally ANE Labs/Vital Signs - Labs Result Diagrams: 06/12/18 11:30 06/12/18 11:30 - Vital Signs Blood Pressure: 141/91 Heart Rate: 105 Respiratory Rate: 18 O2 Sat (%): 95 Height: 182.88 cm Weight: 127.006 kg ANE Physical Exam - Airway Mallampati Score: Class 3 - ASA Status ASA Status: III, E ANE Anesthesia Plan Anesthesia Plan: GA w LMA
[2018-06-12] MEDS ORDERED: PROPOFOL 200 MG/20 ML VIAL ONE (17:54)
[2018-06-12] MEDS ORDERED: ONDANSETRON 4 MG/2 ML VIAL ONE (18:22)
[2018-06-12] MEDS ORDERED: METOCLOPRAMIDE 10 MG/2 ML VIAL ONE (18:22)
[2018-06-12] MEDS ORDERED: PHENYLEPHRINE HCL 100 MCG/ML SYR ONE (18:22)
--- NOTE | 2018-06-12 18:38 | POSTOPPROG ---
Post Op Note Date of Operation: 06/12/18 Surgeon: Tatyana Olguin Playground Aide: virginia JOSUE Anesthesia: LMA Pre-op Diagnosis: r rigoberto dislocation Procedure: r rigoberto reduction with fluoro Inf/Abcess present in the surg proc area at time of surgery?: No EBL: none
[2018-06-12] MEDS ORDERED: METOCLOPRAMIDE 10 MG/2 ML VIAL IVP PRN (18:39)
[2018-06-12] MEDS ORDERED: TEMAZEPAM 15 MG CAP PO PRN (18:39)
[2018-06-12] MEDS ORDERED: LACTULOSE 20 GM/30 ML UDCUP PO PRN (18:39)
[2018-06-12] MEDS ORDERED: PROMETHAZINE HCL 25 MG SUPPR PR PRN (18:39)
[2018-06-12] MEDS ORDERED: diphenhydrAMINE 25 MG CAP PO PRN (18:39)
[2018-06-12] MEDS ORDERED: PROMETHAZINE HCL 25 MG/ML INJ IVP PRN (18:39)
[2018-06-12] MEDS ORDERED: MAGNESIUM HYDROXIDE 30 ML UDCUP PO PRN (18:39)
[2018-06-12] MEDS ORDERED: BISACODYL 10 MG SUPP PR PRN (18:39)
[2018-06-12] MEDS ORDERED: TAPENTADOL HCL 50 MG TAB PO PRN ×2 (18:39→20:04)
[2018-06-12] MEDS ORDERED: DIPHENOXYLATE/ATROPINE LOMOTIL 1 TAB PO PRN (18:39)
[2018-06-12] MEDS ORDERED: ALBUTEROL 3 ML DEYVIAL IH PRN (18:41)
[2018-06-12] MEDS ORDERED: NALOXONE HCL 0.4 MG/ML INJ IVP PRN (18:41)
[2018-06-12] MEDS ORDERED: LR 500 ML IV PRN (18:41)
--- NOTE | 2018-06-12 18:43 | POSTANESTH ---
Post Anesthetic Evaluation Cardiovascular Status: Similar to Pre-Op Cond Respiratory Status: Similar to Pre-op Cond. Level of Consciousness/Mental Status: Can Participate in Eval Pain Control: Adequate, Prn Tx Ordered Nausea/Vomiting Control: Adequate, Prn Tx Ordered Complications Possibly Related to Anesthesia: None Noted
[2018-06-12] MEDS ORDERED: LR 1,000 ML IV SCH (19:00)
--- NOTE | 2018-06-12 19:32 | GOP ---
DATE OF OPERATION: 06/12/2018 SURGEON: Tatyana Olguin MD POLICE COMMANDING OFFICER: Jing Ocampo PA-C, whose presence was medically necessary. ANESTHESIA: LMA. ANESTHESIOLOGIST: The patient brought to the operating room after the right side had been identified as correct side by the patient and the physician. Once in the operating room, he was placed under g eneral anesthesia using an LMA. Once asleep, the leg was adjusted and placed in external rotation wi th traction gaining good lengthening via fluoroscopy but the hip did not want to go into place. Furt her evaluation revealed the head to be posterior, had gotten posterior rather than staying anterior d ue to over reduction. Therefore the leg was then internally rotated and traction placed to put the h ip into place. Once in place, it was felt to be a solid reduction. The hip was pulled and pushed in order to check stability, its stability was checked under fluoroscopy to internal external rotation. The hip abduction brace was put into place with the right knee placed under pillows in order to sarah ntain some hip flexion. He was then woken up, transferred onto a stretcher, extubated, sent to [facility] in good condition. PREOPERATIVE DIAGNOSIS: Dislocated right total hip arthroplasty. POSTOPERATIVE DIAGNOSIS: Dislocated right total hip arthroplasty. PROCEDURE PERFORMED: Reduction of right total hip arthroplasty with the use of fluoroscopy. FINDINGS: INDICATIONS: This is a 68-year-old male, who had undergone a right total hip arthroplasty two days a go. He had been discharged to home, was trying to put on his LISSET hose and bent over to adjust his TE D hose. He felt the hip go out of place. He was seen in the emergency room, diagnosed with a hip dis location. Attempts were made to reduce the hip without effect. I was asked to see the patient for f urther evaluation. He was brought to the operating room to undergo reduction under anesthesia. DESCRIPTION OF PROCEDURE: /[id number]/MODL
--- NOTE | 2018-06-12 19:32 | GCON ---
INPATIENT CONSULT. DATE OF CONSULTATION: 06/12/2018 CURRENT COMPLAINT: Right hip pain. HISTORY OF PRESENT ILLNESS: This is a 68-year-old male, who had previously undergone a right total h ip arthroplasty by Dr. Main in [place] approximately 2 days ago. Had been doing well up until he tri ed to bend over to adjust his LISSET hose and felt the hip go out of place. He was seen in the emergenc y room, diagnosed with a hip dislocation and attempt at reduction was tried to no avail. He was ther efore brought to the operating room to undergo reduction. PHYSICAL EXAMINATION: The patient holds the leg in extended and externally rotated position. He rem ains grossly neurologically intact to the dorsal, lateral and plantar portions of the foot. Range of motion was not attempted secondary to having seen his x-rays. X-rays revealed a superior migration anterior dislocation of the hip. ASSESSMENT AND PLAN: Patient is status post right total hip arthroplasty dislocation. Options were discussed with the patient and include reduction versus leaving it as is. He would pref er reduction, therefore consent was signed. He was to be brought to the operating room as soon as romie hauser is available. /[id number]/MODL
[2018-06-12] MEDS: FAMOTIDINE 20 MG TAB PO SCH (21:34)
[2018-06-12] MEDS: DOXAZOSIN MESYLATE 4 MG TAB PO SCH (21:35)
[2018-06-12] MEDS: SENNOSIDES/DOCUSATE SODIUM TAB PO SCH (21:35)
[2018-06-12] MEDS: ATORVASTATIN CALCIUM 40 MG TAB PO SCH (21:35)
[2018-06-12] MEDS: ASPIRIN 81 MG CHEWABLE TAB PO SCH (21:36)
[2018-06-12] MEDS: oxyCODONE IR 5 MG TAB PO PRN (21:46)
[2018-06-12] MEDS: CEFADROXIL 500 MG PO SCH (23:37)
--- NOTE | 2018-06-12 23:38 | HOSPPROG ---
Hospitalist Progress Note Assessment/Plan: I have examined the patient and reviewed the chart including labs, imaging, and ECGs. I have discussed with Marley Suh LETTER CARRIER and agree with the plan outlined in her note with the following exceptions: 68yo M with CAD s/p several revascularizations, AMINTA, right UELALIA 2 days ago in [place] presents after right hip became dislocated while trying to get dressed. Unable to reduce in ED so taken to OR.. 1. Right hip arthroplasty dislocation: Successfully reduced in OR under general anesthesia with Dr Olguin. Currently in brace. Oxycodone PRN for pain management ( he declines IV morphine or dilaudid). PT/OT ordered. 2. CAD s/p CABG in remote past and ZITA to LAD 09/2017: His wrapper leaf inspector, Dr Euceda at [facility] in [place], had discontinued his plavix earlier in May after ~ 8 months of DAPT and wants him to continue on aspirin through surgery. 3. Leukocytosis: Suspect reactive in setting of surgery. No s/s of infection. Hold on antibiotics. 4. Anemia: Suspect this is post-op. No signs of bleeding. Monitor. 5. Atrial fibrillation: Continue verapamil. Holding eliquis until cleared from surgical stand point. 6. AMINTA: Non-compliant with CPAP. Continuous pulse ox while getting narcotics post-operatively. 7. Pulmonary hypertension: Monitor fluid status. VTE ppx: LMWH Code: full Dispo: Admit under observation Objective: Vital Signs Temp Pulse Resp BP Pulse Ox 36.7 C 88 16 99/71 L 95 06/12/18 22:57 06/12/18 22:57 06/12/18 22:57 06/12/18 22:57 06/12/18 22:57 06/11/18 06/12/18 06/13/18 05:59 05:59 05:59 Intake Total 1710 Output Total 0 Balance 1710 PT 14.5 SEC (12.0-15.0) 06/12/18 11:30 INR 1.11 (0.83-1.16) 06/12/18 11:30 ICD10 Worksheet Patient Problems: Problems Problem Status Onset Posterior dislocation of right hip, initial encounter Acute Atrial fibrillation Acute Chest pain Acute History of coronary artery disease Acute
[2018-06-12] MEDS: ACETAMINOPHEN 325 MG TAB PO SCH (23:56)
[2018-06-12] MEDS: traMADol 50 MG TAB PO SCH (23:57)
[2018-06-13] MEDS ORDERED: traMADol 50 MG TAB PO SCH
[2018-06-13] MEDS: oxyCODONE IR 5 MG TAB PO PRN ×6 (03:36→23:57)
[2018-06-13 05:12] LABS: PLATELET COUNT 171 10^3/uL (150-400)
[2018-06-13] MEDS: traMADol 50 MG TAB PO SCH ×4 (05:42→23:57)
[2018-06-13] MEDS: ACETAMINOPHEN 325 MG TAB PO SCH ×3 (05:42→17:48)
--- NOTE | 2018-06-13 08:45 | HOSPPROG ---
Hospitalist Progress Note Assessment/Plan: 68yo M with CAD s/p several revascularizations, AMINTA, right EULALIA 2 days ago in [place] presents after right hip became dislocated while trying to get dressed. Unable to reduce in ED so taken to OR. First encounter, chart reviewed. * Right hip arthroplasty dislocation: -reduced in OR w Dr Olguin -PT and OT -had a brace placed by Dr Olguin -awaiting input from Ortho about plan of care * CAD s/p CABG in remote past and ZITA to LAD 09/2017 - His die maker trim, Dr Euceda at [facility] in [place], had discontinued his plavix earlier in May after ~8 months of DAPT and wants him to continue on aspirin through surgery. * Leukocytosis -better today, afebrile * Anemia -stable * Atrial fibrillation -Continue verapamil. -Holding eliquis until cleared from surgery (patient as instructed to hold this from his previous orthopedic surgeon) * AMINTA -on 2 liters, will ask nursing staff to do a room air challenge * Pulmonary hypertension *plan: reviewed his care w OT who is recommending SNF, patient is extremely weak , has stairs in his home and will likely need a higher level of care. He will require another midnight stay Subjective: Jose is not c/o pain but is very worried about getting around Objective: Vital Signs Temp Pulse Resp BP Pulse Ox 36.9 C 98 16 134/70 H 94 06/13/18 07:38 06/13/18 07:38 06/13/18 07:38 06/13/18 07:38 06/13/18 07:38 Laboratory Results 06/13/18 04:21 06/13/18 04:21 06/12/18 06/13/18 06/14/18 05:59 05:59 05:59 Intake Total 2360 Output Total 275 Balance 2085 PT 14.5 SEC (12.0-15.0) 06/12/18 11:30 INR 1.11 (0.83-1.16) 06/12/18 11:30 - Physical Exam Constitutional: obese, uncomfortable Eyes: PERRL Ears, Nose, Mouth, Throat: hearing normal Cardiovascular: irregularly irregular Respiratory: no respiratory distress Gastrointestinal: normoactive bowel sounds Skin: warm Musculoskeletal: generalized weakness Neurologic: AAOx3 Psychiatric: interacting appropriately ICD10 Worksheet Patient Problems: Problems Problem Status Onset Posterior dislocation of right hip, initial encounter Acute Atrial fibrillation Acute Chest pain Acute History of coronary artery disease Acute
[2018-06-13] MEDS ORDERED: ENOXAPARIN 30 MG/0.3 ML SYR SC SCH (09:00)
[2018-06-13] MEDS: ENOXAPARIN 40 MG/0.4 ML SYR SC SCH (10:36)
[2018-06-13] MEDS: ASPIRIN 81 MG CHEWABLE TAB PO SCH ×2 (10:37→20:02)
[2018-06-13] MEDS: TRIAMTERENE/HCTZ 37.5/25 1 EACH TAB PO SCH (10:37)
[2018-06-13] MEDS: FAMOTIDINE 20 MG TAB PO SCH ×2 (10:37→20:03)
[2018-06-13] MEDS: CEFADROXIL 500 MG PO SCH ×2 (10:38→20:42)
[2018-06-13] MEDS: SENNOSIDES/DOCUSATE SODIUM TAB PO SCH ×2 (10:38→20:03)
[2018-06-13] MEDS: CYCLOBENZAPRINE 10 MG TAB PO PRN (11:32)
--- NOTE | 2018-06-13 12:33 | ASMTCMCOM ---
CM Note CM Note Notes: Pt had surgery for prosthetic hip dislocation, resides with girlfriend in [place]. PT/OT rec SNF, pt requests referral to [facility] and [facility] can accept pt. D/c plan of care: [facility] SNF when medically stable Date Signed: 06/13/2018 12:32 PM Electronically Signed By:THOM Boucher
[2018-06-13] MEDS: VERAPAMIL ER 180 MG TAB PO SCH ×2 (13:56→16:58)
[2018-06-13] MEDS: ATORVASTATIN CALCIUM 40 MG TAB PO SCH (20:03)
[2018-06-13] MEDS: DOXAZOSIN MESYLATE 4 MG TAB PO SCH (20:51)
[2018-06-14] MEDS: ACETAMINOPHEN 325 MG TAB PO SCH ×5 (01:07→23:47)
[2018-06-14 04:57] LABS: PLATELET COUNT 173 10^3/uL (150-400)
[2018-06-14] MEDS: traMADol 50 MG TAB PO SCH ×4 (05:52→23:47)
--- NOTE | 2018-06-14 08:50 | PDMN ---
Medical Necessity Medical necessity: GRG general admission: OP: pt with reduction of R EULALIA unable to ambulate safely- very weak, ongoing PT/OT needed > 2 MN status changed to INPT 06/13/18. PMHx CAD s/p CABG, EULALIA, leukocytosis, anemia, AMINTA, Pulm. HTN
[2018-06-14] MEDS: ENOXAPARIN 40 MG/0.4 ML SYR SC SCH (09:13)
[2018-06-14] MEDS: ASPIRIN 81 MG CHEWABLE TAB PO SCH ×2 (09:13→22:28)
[2018-06-14] MEDS: VERAPAMIL ER 180 MG TAB PO SCH (09:13)
[2018-06-14] MEDS: SENNOSIDES/DOCUSATE SODIUM TAB PO SCH ×2 (09:15→22:41)
[2018-06-14] MEDS: FAMOTIDINE 20 MG TAB PO SCH ×2 (09:16→22:27)
[2018-06-14] MEDS: oxyCODONE IR 5 MG TAB PO PRN ×3 (09:16→22:32)
[2018-06-14] MEDS: TRIAMTERENE/HCTZ 37.5/25 1 EACH TAB PO SCH (09:16)
[2018-06-14] MEDS: CEFADROXIL 500 MG PO SCH ×2 (09:23→22:27)
--- NOTE | 2018-06-14 13:25 | HOSPPROG ---
Hospitalist Progress Note Assessment/Plan: 68yo M with CAD s/p several revascularizations, AMINTA, right EULALIA 2 days ago in [place] presents after right hip became dislocated while trying to get dressed. Unable to reduce in ED so taken to OR. * Right hip arthroplasty dislocation: -reduced in OR w Dr Olguin -PT and OT recommending rehab -had a brace placed by Dr Olguin -awaiting input from Ortho about plan of care * CAD s/p CABG in remote past and ZITA to LAD 09/2017 - His clinical lab scientist, Dr Euceda at [facility] in [place], had discontinued his plavix earlier in May after ~8 months of DAPT and wants him to continue on aspirin through surgery. * Leukocytosis -better today, afebrile * Anemia -stable * Atrial fibrillation, chronic -Continue verapamil, he was told by his previous surgeon to stop this, but was resumed because of afib w rvr -resumed Eliquis today, spoke to the PA neon tube pumper at [facility] ( [facility])-ok to resume- he will update the patient's surgeon * AMINTA -on 2 liters, will ask nursing staff to do a room air challenge *obesity w a BMI * Pulmonary hypertension *plan: resume Eliquis now, patient was very upset about not being clear about his medications. Reviewed the plan of care. Starting to have worsening pain in his r leg, will recheck labs in the morning and dc to [facility] rehab if stable Subjective: Jose is upset and concerned about his home medications, he is having pain in his right leg. Objective: Vital Signs Temp Pulse Resp BP Pulse Ox 36.9 C 106 H 16 123/90 H 96 06/14/18 11:46 06/14/18 11:46 06/14/18 11:46 06/14/18 11:46 06/14/18 11:46 Laboratory Results 06/14/18 04:21 06/13/18 06/14/18 06/15/18 05:59 05:59 05:59 Intake Total 500 500 Output Total 1050 Balance -550 500 PT 14.5 SEC (12.0-15.0) 06/12/18 11:30 INR 1.11 (0.83-1.16) 06/12/18 11:30 - Physical Exam Constitutional: obese, uncomfortable Eyes: PERRL Ears, Nose, Mouth, Throat: hearing normal Cardiovascular: irregularly irregular Gastrointestinal: other (large and round) Skin: warm Musculoskeletal: generalized weakness Neurologic: AAOx3 Psychiatric: anxious ICD10 Worksheet Patient Problems: Problems Problem Status Onset Posterior dislocation of right hip, initial encounter Acute Atrial fibrillation Acute Chest pain Acute History of coronary artery disease Acute
[2018-06-14] MEDS: APIXABAN 5 MG TAB PO SCH ×2 (14:29→22:28)
--- NOTE | 2018-06-14 16:08 | SOAPPROG ---
SOANDI Progress Note Assessment/Plan: Assessment: Plan: Subjective: states he's more comfortable brace in place foot NVI plan for transfer tomorrow Objective: Vital Signs Temp Pulse Resp BP Pulse Ox 36.9 C 81 14 129/67 H 94 06/14/18 15:42 06/14/18 15:42 06/14/18 15:42 06/14/18 15:42 06/14/18 15:42 Laboratory Results 06/14/18 04:21 06/13/18 06/14/18 06/15/18 05:59 05:59 05:59 Intake Total 500 500 Output Total 1050 200 Balance -550 300 PT 14.5 SEC (12.0-15.0) 06/12/18 11:30 INR 1.11 (0.83-1.16) 06/12/18 11:30 ICD10 Worksheet Patient Problems: Problems Problem Status Onset Posterior dislocation of right hip, initial encounter Acute Atrial fibrillation Acute Chest pain Acute History of coronary artery disease Acute
[2018-06-14] MEDS: ATORVASTATIN CALCIUM 40 MG TAB PO SCH (22:27)
[2018-06-14] MEDS: DOXAZOSIN MESYLATE 4 MG TAB PO SCH (22:28)
[2018-06-14] MEDS: POLYETHYLENE GLYCOL 3350 17 GM PKT PO PRN (22:42)
[2018-06-15] MEDS: traMADol 50 MG TAB PO SCH ×2 (05:13→11:44)
[2018-06-15] MEDS: ACETAMINOPHEN 325 MG TAB PO SCH ×3 (05:13→12:04)
[2018-06-15 08:06] VITALS: BP 136/96
[2018-06-15] MEDS: SENNOSIDES/DOCUSATE SODIUM TAB PO SCH (08:19)
[2018-06-15] MEDS: TRIAMTERENE/HCTZ 37.5/25 1 EACH TAB PO SCH (08:19)
[2018-06-15] MEDS: VERAPAMIL ER 180 MG TAB PO SCH (08:20)
[2018-06-15] MEDS: ASPIRIN 81 MG CHEWABLE TAB PO SCH (08:20)
[2018-06-15] MEDS: APIXABAN 5 MG TAB PO SCH (08:20)
[2018-06-15] MEDS: FAMOTIDINE 20 MG TAB PO SCH (08:20)
[2018-06-15] MEDS: POLYETHYLENE GLYCOL 3350 17 GM PKT PO PRN (08:21)
[2018-06-15] MEDS: CEFADROXIL 500 MG PO SCH (08:23)
[2018-06-15] MEDS: oxyCODONE IR 5 MG TAB PO PRN ×2 (08:26→11:43)
[2018-06-15] MEDS: CYCLOBENZAPRINE 10 MG TAB PO PRN (08:30)
--- NOTE | 2018-06-15 08:42 | HOSPPROG ---
Hospitalist Progress Note Assessment/Plan: 68yo M with CAD s/p several revascularizations, AMINTA, right EULALIA 2 days ago in [place] presents after right hip became dislocated while trying to get dressed. Unable to reduce in ED so taken to OR. * Right hip arthroplasty dislocation: -reduced in OR w Dr Olguin -PT and OT recommending rehab -had a brace placed by Dr Olguin * CAD s/p CABG in remote past and ZITA to LAD 09/2017 - His wind plant manager, Dr Euceda at [facility] in [place], had discontinued his plavix earlier in May after ~8 months of DAPT and wants him to continue on aspirin through surgery. * Leukocytosis -better today, afebrile * Anemia -stable * Atrial fibrillation, chronic -Continue verapamil, he was told by his previous surgeon to stop this, but was resumed because of afib w rvr -resumed Eliquis -spoke to the PA cement mason highways and streets at [facility] ([facility])-ok to resume- he will update the patient's surgeon * AMINTA -on room air *obesity w a BMI * Pulmonary hypertension *plan: dc to rehab today Subjective: Jose is feeling better. Objective: Vital Signs Temp Pulse Resp BP Pulse Ox 36.6 C 95 18 136/96 H 90 L 06/15/18 08:00 06/15/18 08:00 06/15/18 08:00 06/15/18 08:00 06/15/18 08:00 Laboratory Results 06/15/18 04:24 06/14/18 06/15/18 06/16/18 05:59 05:59 05:59 Intake Total 500 1620 Output Total 1050 200 Balance -550 1420 PT 14.5 SEC (12.0-15.0) 06/12/18 11:30 INR 1.11 (0.83-1.16) 06/12/18 11:30 - Physical Exam Constitutional: no apparent distress, appears nourished, obese Eyes: PERRL Ears, Nose, Mouth, Throat: hearing normal Cardiovascular: irregularly irregular, No tachycardia Respiratory: no respiratory distress Skin: warm Musculoskeletal: generalized weakness Neurologic: AAOx3 Psychiatric: interacting appropriately ICD10 Worksheet Patient Problems: Problems Problem Status Onset Posterior dislocation of right hip, initial encounter Acute Atrial fibrillation Acute Chest pain Acute History of coronary artery disease Acute
--- NOTE | 2018-06-15 09:57 | PDIAF ---
- Diagnosis Diagnosis: r hip athroplasty s/p reduction, chronic afib Code Status: Full Code - Medication Management Discharge Medications: electronically signed and located in the Home Medication List. - Orders Services needed: Physical Therapy, Occupational Therapy Diet Recommendation: no restrictions on diet Diet Texture: Regular Texture Diet Additional Instructions: follow up with your orthopedic doctor in [facility] - Dr Main if you have any further questions, see Dr Olguin Let your orthopedic doctor and your supervisor carton and can supply know you resumed Eliquis, aspirin and Verapamil brace specifications per Dr Olguin - Follow Up Care Current Providers and Referrals: Patient,NotPresent [Unknown] - As per Instructions Tatyana Olguin MD [Medical Doctor] -
--- NOTE | 2018-06-15 12:53 | SOAPPROG ---
JULIA Progress Note Assessment/Plan: Assessment: Plan: Subjective: states he's more comfortable now than he was right after his initial surgery brace in place heading for rehab today Objective: Vital Signs Temp Pulse Resp BP Pulse Ox 36.6 C 95 18 136/96 H 90 L 06/15/18 08:00 06/15/18 08:00 06/15/18 08:00 06/15/18 08:00 06/15/18 08:00 Laboratory Results 06/15/18 04:24 06/14/18 06/15/18 06/16/18 05:59 05:59 05:59 Intake Total 500 1620 Output Total 1050 200 Balance -550 1420 PT 14.5 SEC (12.0-15.0) 06/12/18 11:30 INR 1.11 (0.83-1.16) 06/12/18 11:30 ICD10 Worksheet Patient Problems: Problems Problem Status Onset Posterior dislocation of right hip, initial encounter Acute Atrial fibrillation Acute Chest pain Acute History of coronary artery disease Acute
--- NOTE | 2018-06-15 13:11 | GDS ---
DISCHARGE DIAGNOSES: 1. Right hip arthroplasty dislocation, status post reduction. 2. History of coronary artery disease, status post coronary artery bypass graft. 3. Leukocytosis. 4. Anemia. 5. Chronic atrial fibrillation. 6. Obstructive sleep apnea. 7. Obesity with a body mass index of 38. 8. Pulmonary hypertension. CONSULTATION: Dr. Tatyana Olguin. HISTORY OF PRESENT ILLNESS: Briefly, the patient is a 68-year-old male with coronary artery disease, status post several revascularizations, obstructive sleep apnea, and had a right EULALIA at [facility]. He came to the emergency room after his right hip became dislocated while trying to get dressed . They were unable to reduce it in the emergency room, so he was taken to the OR with Dr. Olguin and h ad this reduced under fluoroscopy. The patient now has a brace in place and is doing quite well. He will follow up with his orthopedic surgeon at [facility]. HOSPITAL COURSE: 1. Right hip arthroplasty dislocation. This was reduced in OR with Dr. Olguin, doing quite well. 2. Coronary artery disease, status post coronary artery bypass graft. His sociocultural anthropology professor, Dr. Euceda at [facility] in [place] had Discontinued his Plavix earlier in May and wanted him to continue with aspi rin through surgery. This has been continued during this hospital stay. 3. Leukocytosis, better. 4. Anemia, stable. 5. Chronic atrial fibrillation. Resumed his verapamil. I also resumed his Eliquis. I spoke to the physician topographical field assistant on-call at [facility] to be sure this was okay. He will update the patient's surgeon. 6. Obstructive sleep apnea, on room air. 7. Obesity with a BMI of 38. 8. Pulmonary hypertension. Further follow up with his sociocultural anthropology professor. DISCHARGE CONDITION: Stable. Blood pressure is 136/96, heart rate of 95, respiratory rate of 18, O2 sats on room air 90%, temperature 36.6 Celsius. DISCHARGE MEDICATIONS: Please see medication reconciliation report . DISCHARGE INSTRUCTIONS: 1. Activity per Dr. Olguin. 2. Follow up with his orthopedic surgeon in [place], Dr. Main. 3. If he has any chest pain, shortness of breath, or any worsening problems with his hip, return to the ER. Greater than 30 minutes discharging and coordinating the patient's care. /[id number]/MODL
== END 2018-06-15 12:57 | DRG 561 ==
LOC: EDUNIT# → FSGY 15:35 → F3N 19:39 → OBSVTOIN 06-13 16:40
PROVIDERS: ADMIT Internal Medicine; ATTEND Internal Medicine
PROC: 0SS9XZZ Reposition Right Hip Joint, External Approach (ICD-10-PCS; principal; 2018-06-12 17:00)
DX: T84.020A Dislocation of internal right hip prosthesis, initial encounter (principal); E86.9 Volume depletion, unspecified; I25.10 Atherosclerotic heart disease of native coronary artery without angina pectoris; D64.9 Anemia, unspecified; I48.2 Chronic atrial fibrillation; I10 Essential (primary) hypertension; G47.33 Obstructive sleep apnea (adult) (pediatric); E66.01 Morbid (severe) obesity due to excess calories; I27.20 Pulmonary hypertension, unspecified; Z68.38 Body mass index [BMI] 38.0-38.9, adult; Z95.1 Presence of aortocoronary bypass graft
CPT/HCPCS: 96374; 97116-GP; 97161-GP; 97166-GO; 97530-GP; 97535-GO; G0378; G8978-GP-CK; G8979-GP-CI; G8987-GO-CL; G8988-GO-CJ; J1650; J2250; J2370; J2405; J2704; J2765; J3010

== ENCOUNTER 2018-06-28 15:10 | Emergency (ER) | payer OTHER ==
[2018-06-28] MEDS ORDERED: DIAZEPAM 5 MG/ML 1 ML SYR IVP ONE (15:19)
[2018-06-28] MEDS ORDERED: NS 1,000 ML IV ONE (15:21)
--- NOTE | 2018-06-28 15:23 | EDPHY ---
H & P Time Seen by Provider: 06/28/18 15:13 HPI/ROS: CHIEF COMPLAINT: Right hip dislocation HISTORY OF PRESENT ILLNESS: The patient is a 68-year-old man who dislocated his right prosthetic hip. He has a history of morbid obesity, 5 vessel CABG in 2010 as well as atrial fibrillation on Eliquis. He had his hip repaired [address] Main at [facility]. 3 weeks ago it dislocated and he came here. We were unable to reduce it here in the emergency department and he had to go to the operating room and Dr. Olguin was able to reduce it with fluoroscopy. He had been wearing a brace but took it off today to go to the bathroom which is not unusual. However while he was walking he felt a pop and it dislocated again. No fall or other trauma. No recent fevers or infections. No chest pain or shortness of breath. Severity: Severe Modifying factors: Pain improved with 60 mg ketamine given by EMS. REVIEW OF SYSTEMS: Constitutional: denies: chills, fever, recent illness, recent injury EENTM: denies: blurred vision, double vision, nose congestion Respiratory: denies: cough, shortness of breath Cardiac: denies: chest pain, irregular heart rate, lightheadedness, palpitations Gastrointestinal/Abdominal: denies: abdominal pain, diarrhea, nausea, vomiting, blood streaked stools Genitourinary: denies: dysuria, frequency, hematuria, pain Musculoskeletal: See HPI Skin: denies: lesions, rash, jaundice, bruising Neurological: denies: headache, numbness, paresthesia, tingling, dizziness, weakness Hematologic/Lymphatic: denies: blood clots, easy bleeding, easy bruising Immunologic/allergic: denies: HIV/AIDS, transplant 10 systems reviewed and negative except as noted EXAM: GENERAL: Well-appearing, well-nourished and in no acute distress. HEAD: Atraumatic, normocephalic. EYES: Pupils equal round and reactive to light, extraocular movements intact, sclera anicteric, conjunctiva are normal. ENT: TMs normal, nares patent, oropharynx clear without exudates. Moist mucous membranes. NECK: Normal range of motion, supple without lymphadenopathy or JVD. LUNGS: Breath sounds clear to auscultation bilaterally and equal. No wheezes rales or rhonchi. HEART: Regular rate and rhythm without murmurs, rubs or gallops. ABDOMEN: Soft, nontender, normoactive bowel sounds. No guarding, no rebound. No masses appreciated. BACK: No CVA tenderness, no spinal tenderness, step-offs or deformities EXTREMITIES: Right hip pain, right leg shortening, normal movement in foot, normal pulses and sensation. NEUROLOGICAL: Cranial nerves II through XII grossly intact. Normal speech. 5/ 5 strength, normal movement in all extremities, normal sensation, normal reflexes PSYCH: Normal mood, normal affect. SKIN: Warm, dry, normal turgor, no visible rashes or lesions. Source: Patient, EMS Exam Limitations: No limitations - Medical/Surgical History Hx Asthma: No Hx Chronic Respiratory Disease: No Hx Diabetes: No Hx Cardiac Disease: Yes Hx Renal Disease: No Hx Cirrhosis: No Hx Alcoholism: No Hx HIV/AIDS: No Hx Splenectomy or Spleen Trauma: No Other PMH: [place] stents 93. open heart 2010, ramírez, afib on eliquis - Family History Significant Family History: No pertinent family hx - Social History Smoking Status: Never smoked Alcohol Use: Sober Drug Use: None Constitutional: Initial Vital Signs Temperature (C) 37.5 C 06/28/18 15:53 Heart Rate 92 06/28/18 15:53 Respiratory Rate 20 06/28/18 15:53 Blood Pressure 123/90 H 06/28/18 15:53 O2 Sat (%) 94 06/28/18 15:53 O2 Delivery Mode Room Air O2 (L/minute) 2 Allergies/Adverse Reactions: hydromorphone [From Dilaudid] Allergy (Severe, Verified 06/28/18 15:56) "FLATLINES, HEART STOPS" morphine Allergy (Severe, Verified 06/28/18 15:56) "FLATLINES, HEART STOPS" Home Medications: Medication Instructions Recorded Atorvastatin Calcium 80 mg PO HS 10/06/17 Nitroglycerin [Nitrostat 0.4 mg 0.4 mg SL Q5M PRN 10/06/17 (*)] Triamterene/Hctz 37.5/25 1 tab PO DAILY 10/06/17 [Maxzide-25 (*)] Aspirin [Aspirin 81mg (*)] 81 mg PO BID 06/12/18 Diazepam [Valium 5 MG (*)] 5 mg PO BID PRN 06/12/18 Doxazosin Mesylate [Cardura 4 MG 4 mg PO HS 06/12/18 (*)] Verapamil ER [Calan SR/ER 180MG 180 mg PO DAILY 06/12/18 (*)] Apixaban [Eliquis] 5 mg PO BID tab 06/15/18 Cyclobenzaprine [Flexeril 10 MG 10 mg PO Q8HRS PRN tab 06/15/18 (*)] Polyethylene Glycol 3350 [Miralax 17 gm PO DAILY PRN pkt 06/15/18 17 gm (*)] Sennosides/Docusate Sodium 1 - 2 tab PO BID tab 06/15/18 [Senokot-S] Temazepam [Restoril 15 MG (*)] 15 mg PO HS PRN cap 06/15/18 oxyCODONE IR [Oxycodone Ir (*)] 5 - 10 mg PO Q3HRS PRN tab 06/15/18 traMADol [Ultram 50 mg (*)] 50 mg PO Q6HRS tab 06/15/18 oxyCODONE/APAP 5/325 [Percocet 1 - 2 tab PO Q4H PRN #20 tab 06/28/18 5/325 (*)] Medical Decision Making - Diagnostics Imaging Results: Imaging Impressions Hip X-Ray 06/28/18 15:20 Impression: Dislocation of right hip arthroplasty. Pelvis X-Ray 06/28/18 16:16 Impression: Apparent interval reduction of right hip dislocation. Imaging: Discussed imaging studies w/ call worker person Radiologist Procedures: Procedure: Procedural sedation. Indication: Orthopedic reduction. A pre-sedation evaluation was completed on the patient just prior to the procedure. Patient is an appropriate candidate for procedural sedation with a normal 3-3-2 rule assessment and a Mallampati airway score of class 1-4. The risks of the sedation were discussed including but not limited to dysrhythmia, need for airway intervention or general anesthesia, disability, ; and verbal consent obtained. A timeout was observed and patient's identity confirmed. The patient was sedated with ketamine and propofol. The patient was monitored with continuous pulse oximetry, capnography, and monitor worker. There were no complications and no significant hypoxemia. I remained at the bedside for the sedation. The total time I spent in the procedural sedation was 16 minutes. Orthopedic reduction: Patient's right hip was reduced with traction and elevation once he was adequately sedated. X-ray was present in the room to assist. Patient tolerated the procedure well. ED Course/Re-evaluation: 4:30 p.m. were able to successfully reduce the patient's right hip. I spoke with the patient's who was expecting that the patient is going to be either admitted to the hospital or go back to rehab. During his previous visit the reduction was unsuccessful in the ER and had to be hospitalized and taken to the OR. He went from there to rehab had [facility]. He was discharged yesterday and this happened at home today. She is nervous about taking him home and does not think that she can manage him. I discussed this with case management who will call the rehab facility. 5:20 p.m. The patient was accepted back at [facility]. We will transfer him back there. Differential Diagnosis: Partial list of the Differential diagnosis considered include but were not limited to; hip dislocation, fracture and although unlikely based on the history and physical exam, I also considered nerve injury, vascular injury. - Data Points Laboratory Results: Laboratory Results 06/28/18 15:29 06/28/18 15:29 06/28/18 06/28/18 06/28/18 15:50 15:29 15:29 WBC RBC Hgb Hct MCV MCH MCHC RDW Plt Count MPV Neut % (Auto) Lymph % (Auto) Freestone % (Auto) Eos % (Auto) Baso % (Auto) Nucleat RBC Rel Count Absolute Neuts (auto) Absolute Lymphs (auto) Absolute Monos (auto) Absolute Eos (auto) Absolute Basos (auto) Absolute Nucleated RBC Immature Gran % Immature Gran # PT 14.9 SEC SEC REJ (12.0-15.0) INR 1.15 REJ (0.83-1.16) APTT 30.4 SEC SEC REJ (23.0-38.0) Sodium 137 mEq/L mEq/L (135-145) Potassium 4.6 mEq/L mEq/L (3.5-5.2) Chloride 98 mEq/L mEq/L (97-110) Carbon Dioxide 26 mEq/l mEq/l (22-31) Anion Gap 13 mEq/L mEq/L (6-14) BUN 14 mg/dL mg/dL (7-23) Creatinine 0.8 mg/dL mg/dL (0.7-1.3) Estimated GFR > 60 Glucose 126 mg/dL H mg/dL (70-100) Calcium 9.1 mg/dL mg/dL (8.5-10.4) 06/28/18 15:29 WBC 9.90 10^3/uL H 10^3/uL (3.80-9.50) RBC 4.27 10^6/uL L 10^6/uL (4.40-6.38) Hgb 13.0 g/dL L g/dL (13.7-17.5) Hct 38.3 % L % (40.0-51.0) MCV 89.7 fL fL (81.5-99.8) MCH 30.4 pg pg (27.9-34.1) MCHC 33.9 g/dL g/dL (32.4-36.7) RDW 13.9 % % (11.5-15.2) Plt Count 490 10^3/uL H 10^3/uL (150-400) MPV 8.4 fL L fL (8.7-11.7) Neut % (Auto) 76.6 % H % (39.3-74.2) Lymph % (Auto) 11.1 % L % (15.0-45.0) Freestone % (Auto) 9.4 % % (4.5-13.0) Eos % (Auto) 1.4 % % (0.6-7.6) Baso % (Auto) 1.2 % % (0.3-1.7) Nucleat RBC Rel Count 0.0 % % (0.0-0.2) Absolute Neuts (auto) 7.58 10^3/uL H 10^3/uL (1.70-6.50) Absolute Lymphs (auto) 1.10 10^3/uL 10^3/uL (1.00-3.00) Absolute Monos (auto) 0.93 10^3/uL H 10^3/uL (0.30-0.80) Absolute Eos (auto) 0.14 10^3/uL 10^3/uL (0.03-0.40) Absolute Basos (auto) 0.12 10^3/uL H 10^3/uL (0.02-0.10) Absolute Nucleated RBC 0.00 10^3/uL 10^3/uL (0-0.01) Immature Gran % 0.3 % % (0.0-1.1) Immature Gran # 0.03 10^3/uL 10^3/uL (0.00-0.10) PT INR APTT Sodium Potassium Chloride Carbon Dioxide Anion Gap BUN Creatinine Estimated GFR Glucose Calcium Medications Given: Discontinued Medications Diazepam (Valium) 5 mg IVP EDNOW ONE Stop: 06/28/18 15:20 Last Admin: 06/28/18 15:28 Dose: 5 mg Sodium Chloride (Ns) 1,000 mls @ 0 mls/hr IV ONCE ONE; Wide Open PRN Reason: Protocol Stop: 06/28/18 15:22 Last Admin: 06/28/18 15:28 Dose: 1,000 mls Ketamine HCl (Ketamine) 120 mg IVP EDNOW ONE Stop: 06/28/18 16:49 Last Admin: 06/28/18 16:51 Dose: 120 mg Propofol (Diprivan) 80 mg IVP EDNOW ONE Stop: 06/28/18 16:49 Last Admin: 06/28/18 16:52 Dose: 80 mg Departure - Departure Disposition: Home, Routine, Self-Care Clinical Impression: Hip dislocation, right Qualifiers: Encounter type: initial encounter Qualified Code(s): S73.004A - Unspecified dislocation of right hip, initial encounter Condition: Fair Instructions: Hip Dislocation (ED) Referrals: Patient,NotPresent [Unknown] - As per Instructions Prescriptions: oxyCODONE/APAP 5/325 [Percocet 5/325 (*)] 1 - 2 tab PO Q4H PRN #20 tab PRN Reason: Pain, Severe
[2018-06-28 15:36] LABS: PLATELET COUNT 490 10^3/uL (150-400)
[2018-06-28 16:08] LABS: INR 1.15 (0.83-1.16); PROTIME(PATIENT) 14.9 SEC (12.0-15.0)
[2018-06-28] MEDS ORDERED: PROPOFOL/EMULSION 500 MG/50 ML BOTTLE IV ONE (16:11)
[2018-06-28] MEDS ORDERED: KETAMINE 200 MG/20 ML VIAL ONE (16:11)
[2018-06-28] MEDS ORDERED: KETAMINE 500 MG/10 ML VIAL IVP ONE (16:48)
[2018-06-28] MEDS ORDERED: PROPOFOL 200 MG/20 ML VIAL IVP ONE (16:48)
[2018-06-28 18:15] VITALS: BP 133/78
--- NOTE | 2018-06-28 18:46 | ASDISCHSUM ---
Discharge Information Plan Status:SNF Medically Cleared to Leave: Discharge Date:06/28/2018 06:13 PM D/C Disposition:Nursing Home Facility ADT D/C Disposition:Home, Routine, Self-Care Projected Discharge Date:06/28/2018 06:00 PM Transportation at D/C:ALS/BLS Discharge Delay Reason: Follow-Up Date:06/28/2018 06:00 PM Discharge Slot: Final Diagnosis: Placement Information Referral Type:*Snf/SNF Referral ID:[id number] Provider Name:[facility] Address 1:[address] Address 2: City:[place] Selection Factors: State:[place] Patient Contact Information Contact Name:BAMBI Relationship:Daughter Address: Work Phone: City:[place] Alternate Phone: State/Zip Code:[place] Email: Financial Information Financial Class:Medicare Advantage Plans Primary Plan Desc:[facility] ADVANTAGE PLANS Primary Plan Number:[id number] Secondary Plan Desc: Secondary Plan Number: Assessment Information [facility] CM Progress Note CM Note CM Note Notes: Pt presented to the ED via EMS for hip dislocation; pt had reportedly taken off his brace in order to use the restroom and when getting up off the couch he seemed to dislocate hip. Pt recently was d/c'd home from [facility] yesterday. The patient, his girlfriend Tasha and his daughter Sahra feel that it would be best if pt could return to [facility] since Sahra is out of town and Tasha cannot care for pt at home by herself. Spoke w/Ida at [facility] and they are able to re-admit pt. DC Orders Fax-Attached into [employer]. Hard copy of pt's pain medication Rxn provided to EMS to provide to [facility] staff. PCS completed, copy given to EMS, original to be scanned into pt's chart. CM available for further assistance if needed. Date Signed: 06/28/2018 06:44 PM Electronically Signed By:Tasha Dang RN Intervention Information
== END 2018-06-28 18:13 | disposition home or self-care (01) ==
LOC: EDUNIT#
PROC: 0SS9XZZ Reposition Right Hip Joint, External Approach (ICD-10-PCS; principal; 2018-06-28)
DX: S73.004A Unspecified dislocation of right hip, initial encounter (principal); E86.9 Volume depletion, unspecified; I25.10 Atherosclerotic heart disease of native coronary artery without angina pectoris; I10 Essential (primary) hypertension; Z95.1 Presence of aortocoronary bypass graft; Z96.641 Presence of right artificial hip joint
CPT/HCPCS: 27252; 72170; 73502; 96361; 96374; 96375; 99152; 99284; J2704; J3360